=== PATIENT | male | born 1945 | race Caucasian/White ===

== ENCOUNTER 2018-06-09 14:24 | Emergency (ER) | payer OTHER ==
--- OUTSIDE RECORDS SUMMARY | 2018-06-09 14:34 | XMS REPORT | Continuity of Care Document ---
:1945 Author Organization Interface Problems Problem Status Onset Classification Date Comments Source Date Reported PREVENTIVE Active 10/06/20 Condition 12/28/2014 Medical HEALTH CARE 13 Group ATRIAL Active Condition 12/28/2014 Medical FIBRILLATION Group ESSENTIAL Active Condition 12/28/2014 Medical HYPERTENSION, Group BENIGN OSTEOPENIA Active Condition 12/28/2014 Medical Group COPD Active Condition 12/28/2014 Medical Group ASTHMA, Active Condition 12/28/2014 Medical UNSPECIFIED, Group UNSPECIFIED STATUS BENIGN Active Condition 12/28/2014 Medical PROSTATIC Group HYPERTROPHY, WITH URINARY OBSTRUCTION ARTHRITIS, Active Condition 12/28/2014 Medical KNEES, Group BILATERAL PERIPHERAL Active Condition 12/28/2014 Medical NEUROPATHY Group Arthritis Resolved Problem 05/22/2018 Medical Group Arthritis of Active Problem 05/22/2018 Data migrated Medical knee<sup>1</sup from [employer] [facility] > Centricity on 04/30/15. Asthma<sup>2</s Active Problem 05/22/2018 Data migrated Medical up> from [employer] [facility] Centricity on 04/30/15. Atrial Active Problem 05/22/2018 Data migrated Medical fibrillation<dsouza from [employer] Group p>3</sup> Centricity on 04/30/15. Back strain Resolved Problem 05/22/2018 Medical Group Benign Active Problem 05/22/2018 Data migrated Medical essential from GE Group hypertension<dsouza Centricity on p>4</sup> 04/30/15. Benign Active Problem 05/22/2018 Data migrated Medical prostatic from [employer] Group hypertrophy Centricity on with outflow 04/30/15. obstruction<sup >5</sup> Broken Resolved Problem 05/22/2018 Left Medical forearm<sup>6</ Group sup> Bronchitis Resolved Problem 05/22/2018 Medical Group Chronic Active Problem 05/22/2018 Data migrated Medical obstructive from GE Group lung Centricity on disease<sup>7</ 04/30/15. sup> External Resolved Problem 05/22/2018 Medical hemorrhoid Group Fatigue Resolved Problem 05/22/2018 Medical Group Osteopenia<sup> Active Problem 05/22/2018 Data migrated Medical 8</sup> from [employer] Group Centricity on 04/30/15. Peripheral Resolved Problem 05/22/2018 Medical autonomic Group neuropathy of unknown cause Peripheral Active Problem 05/22/2018 Data migrated Medical nerve from [employer] Group disease<sup>9</ Centricity on sup> 04/30/15. Viral pneumonia Resolved Problem 05/22/2018 Medical Group Medications Medication Details Route Status Patient Ordering Order Source Instructions Provider Date naproxen 500 mg 500 mg=1 tab, Active MH oral tablet PO, PRN, PRN 018 Medical Pain Score Group 6-10, # 30 caplet, 6 Refill(s), Pharmacy: [facility] Amlodipine 10 MG See Active MH / Benazepril Instructions, 018 Medical hydrochloride 40 TAKE 1 CAPSULE Group MG Oral Capsule DAILY, # 90 tab, 3 Refill(s), Pharmacy: [facility] naproxen 500 mg 500 mg=1 tab, No MH oral tablet PO, PRN, PRN Longer 018 Medical Pain Score Active Group 6-10, # 30 caplet, 6 Refill(s), Pharmacy: [facility] NAPROXEN SODIUM PRN No MH 550 MG TABS Longer Medical Active Group LOTREL 5-20 MG 1 tablet twice Active MH CAPS day 013 Medical Group NAPROXEN 500 MG 1 tablet daily Active MH TABS Medical Group MULTAQ 400 MG 1 tablet twice Active MH TABS day Medical Group PRADAXA 150 MG 1 tablet daily Active MH CAPS 013 Medical Group CENTRUM SILVER Active MH ULTRA MENS TABS Medical Group SUPER B-COMPLEX Active MH CAPS Medical Group DEXILANT 30 MG Active MH CPDR Medical Group NAPROXEN SODIUM PRN No MH 550 MG TABS Longer Medical Active Group NAPROXEN 500 MG 1 tablet daily Active MH TABS Medical Group MULTAQ 400 MG 1 tablet twice Active MH TABS day 013 Medical Group PRADAXA 150 MG 1 tablet daily Active CAPS 013 Medical Group Allergies, Adverse Reactions, Alerts Substance Category Reaction Severity Reaction Status Date Comments Source type Reported NKDA<sup>1< Assertion Drug Active Data MH /sup> allergy 5 migrated Medical from [facility] on 01/24/16. Originally documented as NKA. Immunizations Immunization Date Given Site Status Last Updated Comments Source Results Order Name Results Value Reference Date Interpretation Comments Source Range Chemistry CHOLESTEROL 159 - 199 mg/dl 2014 Medical Group Chemistry TRIGLYCERIDE 48 - 149 mg/dl 2014 Medical Group Chemistry HDL 63 >=61 mg/dl 2014 Medical Group Chemistry LDL 86 - 99 mg/dl 2014 Medical Group Chemistry SODIUM 140 135 - 145 MEQ/L 2014 Medical mmol/L Group Chemistry POTASSIUM 4.6 3.5 - 5.1 MEQ/L 2014 Medical mmol/L Group Chemistry CREATININE 1.2 0.5 - 1.4 mg/dL 2014 Medical Group Chemistry BUN 22 7 - 22 mg/dL 2014 Medical Group Chemistry BUN/CREAT 18 6 - 25 2014 Medical Group Chemistry ALBUMIN 4.2 3.5 - 5.0 g/dL 2014 Medical Group Chemistry CALCIUM 9.0 8.5 - 10.5 mg/dL 2014 Medical Group Chemistry SGPT (ALT) 25 U/L 0 - 65 2014 Medical Group Chemistry SGOT (AST) 23 U/L 0 - 37 2014 Medical Group Chemistry ALK PHOS 78 U/L 39 - 136 2014 Medical Group Chemistry TSH 1.960 0.360 - uIU/mL 3.740 2014 Medical Group Chemistry PSA 2.46 0.00 - 4.00 ng/mL 2014 Medical Group Hematology HGB 16.0 14.0 - 18.0 g/dL 2014 Medical Group Hematology HCT 46.0 % 42.0 - 54.0 2014 Medical Group Hematology PLATELETS 193 133 - 450 K/CMM 2014 Medical /mm3 Group Chemistry CHOLESTEROL 190 - 199 mg/dl 2012 Medical Group Chemistry TRIGLYCERIDE 45 - 149 11/ mg/dl 2012 Medical Group Chemistry HDL 69 >=61 11 mg/dl 2012 Medical Group Chemistry CHOLESTEROL 190 - 199 11 mg/dl 2012 Medical Group Chemistry TRIGLYCERIDE 45 - 149 11 mg/dl 2012 Medical Group Chemistry HDL 69 >=61 11/ mg/dl 2012 Medical Group Chemistry SODIUM 142 135 - 145 MEQ/L 2012 Medical mmol/L Group Chemistry POTASSIUM 4.2 3.5 - 5.1 MEQ/L 2012 Medical mmol/L Group Chemistry CREATININE 1.0 0.5 - 1.4 mg/dL 2012 Medical Group Chemistry BUN 18 7 - 22 mg/dL 2012 Medical Group Chemistry BUN/CREAT 18 6 - 25 2012 Medical Group Chemistry ALBUMIN 4.3 3.5 - 5.0 g/dL 2012 Medical Group Chemistry CALCIUM 9.3 8.5 - 10.5 mg/dL 2012 Medical Group Chemistry SGPT (ALT) 27 U/L 0 - 65 2012 Medical Group Chemistry SGOT (AST) 19 U/L 0 - 37 2012 Medical Group Chemistry PSA 2.54 0.00 - 4.00 ng/mL 2012 Medical Group Chemistry TRIGLYCERIDE 45 - 149 mg/dl 2012 Medical Group Chemistry HDL 69 >=61 mg/dl 2012 Medical Group Chemistry CHOLESTEROL 190 - 199 11 mg/dl 2012 Medical Group Chemistry TRIGLYCERIDE 45 - 149 11 mg/dl 2012 Medical Group Chemistry HDL 69 >=61 11/ mg/dl 2012 Medical Group Chemistry LDL 112 - 99 mg/dl 2012 Medical Group Chemistry SODIUM 142 135 - 145 MEQ/L 2012 Medical mmol/L Group Chemistry POTASSIUM 4.2 3.5 - 5.1 MEQ/L 2012 Medical mmol/L Group Chemistry CREATININE 1.0 0.5 - 1.4 11 mg/dL 2012 Medical Group Chemistry BUN 18 7 - 22 mg/dL 2012 Medical Group Chemistry BUN/CREAT 18 6 - 25 2012 Medical Group Chemistry ALBUMIN 4.3 3.5 - 5.0 g/dL 2012 Medical Group Chemistry CALCIUM 9.3 8.5 - 10.5 mg/dL 2012 Medical Group Chemistry SGPT (ALT) 27 U/L 0 - 65 2012 Medical Group Chemistry SGOT (AST) 19 U/L 0 - 37 2012 Medical Group Chemistry ALK PHOS 80 U/L 39 - 136 2012 Medical Group Chemistry TSH 1.570 0.360 - uIU/mL 3.740 2012 Medical Group Chemistry ALK PHOS 80 U/L 39 - 136 2012 Medical Group Chemistry TSH 1.570 0.360 - uIU/mL 3.740 2012 Medical Group Chemistry PSA 2.54 0.00 - 4.00 ng/mL 2012 Medical Group Hematology HGB 15.4 14.0 - 18.0 g/dL 2012 Medical Group Hematology HCT 45.7 % 42.0 - 54.0 2012 Medical Group Hematology PLATELETS 177 133 - 450 K/CMM 2012 Medical /mm3 Group Hematology HGB 15.4 14.0 - 18.0 g/dL 2012 Medical Group Hematology HCT 45.7 % 42.0 - 54.0 2012 Medical Group Hematology PLATELETS 177 133 - 450 K/CMM 2012 Medical /mm3 Group Chemistry PSA 3.3 08/26/ MH ng/mL 2011 Medical Group Chemistry PSA 3.3 08/26/ MH ng/mL 2011 Medical Group Chemistry PSA 3.3 08/26/ MH ng/mL 2011 Medical Group Chemistry PSA 3.3 08/26/ MH ng/mL 2011 Medical Group Vital Signs Vital Sign Value Date Comments Source Temperature Oral (F) 98.5 F 02/13/2018 Medical Group Heart Rate 85 02/13/2018 Medical Group BMI Calculated 26.08 02/13/2018 Medical Group Height 190.5 cm 02/13/2018 Medical Group Weight 94.636 02/13/2018 Medical Group Systolic (mm Hg) 141 02/13/2018 Medical Group Diastolic (mm Hg) 80 02/13/2018 Medical Group Weight 204 12/28/2014 Medical Group Temperature Oral (F) 98.1 F 12/28/2014 Medical Group Heart Rate 74 12/28/2014 Medical Group Systolic (mm Hg) 146 12/28/2014 Medical Group Diastolic (mm Hg) 78 12/28/2014 Medical Group Height 73 12/28/2014 Medical Group Weight 200 10/06/2013 Medical Group Temperature Oral (F) 97.0 F 10/06/2013 Medical Group Heart Rate 68 10/06/2013 Medical Group Systolic (mm Hg) 150 10/06/2013 Medical Group Diastolic (mm Hg) 80 10/06/2013 Medical Group Height 73 10/06/2013 Medical Group Encounters Location Location Encounter Encounter Reason Attending ADM DC Status Source Details Type Number For Provider Date Date Visit [facility] Lab Report [id number] Emilie 10/06 10/06 [place] [address] [facility], Medical Medical MD Group Group [facility] Office [id number] Emilie 12/28 12/28 [facility] Visit [address] [facility], Medical Medical MD Group Group [facility] Lab Report [id number] Emilie 12/28 12/28 [facility] [address], Medical Medical MD Group Group [facility] Phone [phone] 12/16 12/18 Primary [facility] Outpatient [id number] EMILIE 02/13 [facility] Outpatient [id number] Emilie 02/13 02/14 [facility] Outpatient [id number] VIVIAN 03/31 Active [facility] Ambulatory [id number] Vivian 03/31 03/31 Primary Pre-Reg [facility] Procedures Procedure Code Date [place]fomer [place] [id number] 02/13/2018 Medical venous blood by Group venipuncture bone density 4002.65 08/21/2010 Complete std Medical dev Group bone density 4002.65 08/11/2010 Done Medical Group bone density 4002.65 08/11/2010 [facility] Procedure on eye [id number] Medical Group Procedure on wrist [id number] Medical Group Sebaceous cyst [id number] Cyst removed Medical removal<sup>1</sup> from [facility] Group
--- OUTSIDE RECORDS SUMMARY | 2018-06-09 14:34 | XMS REPORT | Continuity of Care Document ---
:1945 Author Organization [facility] Care Team Providers Name Role Phone MD Carmelina, Shade Unavailable Unavailable Insurance Providers Payer name Policy type / Policy ID Covered constitution party ID Policy Edge Coverage type MEDICARE [place]: [employer] - FIDEL [employer] - CHOICE (POS II) Encounters Encounter Performer Location Date Lab Report Shade Cosme MD [facility] Oct 06, 2013 Problems Problem Effective Dates Problem Status ATRIAL FIBRILLATION Active ESSENTIAL HYPERTENSION, BENIGN Active OSTEOPENIA Active COPD Active ASTHMA, UNSPECIFIED, UNSPECIFIED STATUS Active BENIGN PROSTATIC HYPERTROPHY, WITH URINARY OBSTRUCTION Active ARTHRITIS, KNEES, BILATERAL Active PERIPHERAL NEUROPATHY Active PREVENTIVE HEALTH CARE Oct 06, 2013 Active Procedures Date Description Comments Aug 11, 2010 bone density Done Aug 11, 2010 bone density Done Oct 06, 2013 smoking status current every day smoker Aug 21, 2010 bone density Complete std dev Medications Medication Instructions Start Date Status NAPROXEN SODIUM 550 MG TABS PRN Inactive LOTREL 5-20 MG CAPS 1 tablet twice day Oct 06, 2013 Active NAPROXEN 500 MG TABS 1 tablet daily Oct 06, 2013 Active MULTAQ 400 MG TABS 1 tablet twice day Oct 06, 2013 Active PRADAXA 150 MG CAPS 1 tablet daily Oct 06, 2013 Active CENTRUM SILVER ULTRA MENS TABS Oct 06, 2013 Active SUPER B-COMPLEX CAPS Oct 06, 2013 Active DEXILANT 30 MG CPDR Oct 06, 2013 Active Vital Signs Date Description Test Result Oct 06, 2013 weight E&M - 3141-9 WEIGHT 200 lb Oct 06, 2013 temperature E&M TEMPERATURE 97.0 deg f Oct 06, 2013 pulse rate E&M - 8867-4 PULSE RATE 68 /min Oct 06, 2013 blood pressure, systolic - 8480-6 BP SYSTOLIC 150 mm Hg Oct 06, 2013 blood pressure, diastolic - 8462-4 BP DIASTOLIC 80 mm Hg Oct 06, 2013 height E&M - 8302-2 HEIGHT 73 in Results Date Description Test Name Value Reference Interpretation Status Oct 06, hemoglobin, blood HGB 15.4 g/dL 14.0-18.0 2012Oct 06, hematocrit, blood HCT 45.7 % 42.0-54.0 2012Oct 06, platelet count PLATELETS 177 K/CMM [phone] /mm3 Oct 06, hemoglobin, blood HGB 15.4 g/dL 14.0-18.0 2012Oct 06, hematocrit, blood HCT 45.7 % 42.0-54.0 2012Oct 06, platelet count PLATELETS 177 K/CMM [phone] /mm3 Oct 06, cholesterol, serum CHOLESTEROL 190 mg/dl <=199 2012Oct 06, triglyceride, serum, TRIGLYCERIDE 45 mg/dl <=149 2012 fasting Oct 06, HDL cholesterol, HDL 69 mg/dl >=61 2012Oct 06, sodium, serum SODIUM 142 MEQ/L [phone] mmol/L Oct 06, potassium, serum POTASSIUM 4.2 MEQ/L 3.5-5.1 2012 mmol/L Oct 06, creatinine, serum CREATININE 1.0 mg/dL 0.5-1.4 2012Oct 06, urea nitrogen, blood BUN 18 mg/dL 7-22 2012Oct 06, urea BUN/CREAT 18 null 6-25 2012 nitrogen/creatinine ratio, serum Oct 06, albumin, serum ALBUMIN 4.3 g/dL 3.5-5.0 2012Oct 06, calcium, serum CALCIUM 9.3 mg/dL 8.5-10.5 2012Oct 06, alanine SGPT (ALT) 27 U/L 0-65 2012 aminotransferase (SGPT), serum Oct 06, aspartate SGOT (AST) 19 U/L 0-37 2012 aminotransferase (SGOT), serum Oct 06, alkaline ALK PHOS 80 U/L 39-136 2012 phosphatase, serum Oct 06, thyroid stimulating TSH 1.570 0.360-3.740 2012 hormone, serum uIU/mL Oct 06, prostate specific PSA 2.54 0.00-4.00 2012 antigen ng/mL Sep 25, prostate specific PSA 3.3 ng/mL 2011 antigen Sep 25, prostate specific PSA 3.3 ng/mL 2011 antigen Oct 06, cholesterol, serum CHOLESTEROL 190 mg/dl <=199 2012Oct 06, triglyceride, serum, TRIGLYCERIDE 45 mg/dl <=149 2012 fasting Oct 06, HDL cholesterol, HDL 69 mg/dl >=61 2012 serum Oct 06, LDL cholesterol, LDL 112 mg/dl <=99 High 2012Oct 06, sodium, serum SODIUM 142 MEQ/L [phone] mmol/L Oct 06, potassium, serum POTASSIUM 4.2 MEQ/L 3.5-5.1 2012 mmol/L Oct 06, creatinine, serum CREATININE 1.0 mg/dL 0.5-1.4 2012Oct 06, urea nitrogen, blood BUN 18 mg/dL 7-22 2012Oct 06, urea BUN/CREAT 18 null 6-25 2012 nitrogen/creatinine ratio, serum Oct 06, albumin, serum ALBUMIN 4.3 g/dL 3.5-5.0 2012Oct 06, calcium, serum CALCIUM 9.3 mg/dL 8.5-10.5 2012Oct 06, alanine SGPT (ALT) 27 U/L 0-65 2012 aminotransferase (SGPT), serum Oct 06, aspartate SGOT (AST) 19 U/L 0-37 2012 aminotransferase (SGOT), serum Oct 06, alkaline ALK PHOS 80 U/L 39-136 2012 phosphatase, serum Oct 06, thyroid stimulating TSH 1.570 0.360-3.740 2012 hormone, serum uIU/mL Oct 06, prostate specific PSA 2.54 0.00-4.00 2012 antigen ng/mL
--- OUTSIDE RECORDS SUMMARY | 2018-06-09 14:35 | XMS REPORT | Summary of Care ---
:1945 Author Organization [facility] Primary Care [facility] Address [address] [place] [address]- Encounter HQ Bipinntr_dominique(FIN) [phone] Date(s): 12/16/17 - 12/17/17 [facility] Care [facility] [address] [place], [place] [address] [phone] Vital Signs No data available for this section Problem List Condition Effective Dates Status Health Status Informant Arthritis(Confirmed) Resolved Arthritis of knee1 Active Asthma2 Active Atrial fibrillation3 Active Back strain(Confirmed) Resolved Benign essential hypertension4 Active Benign prostatic hypertrophy with Active outflow obstruction5 Broken forearm(Confirmed)6 Resolved Bronchitis(Confirmed) Resolved Chronic obstructive lung disease7 Active External hemorrhoid(Confirmed) Resolved Fatigue(Confirmed) Resolved Osteopenia8 Active Peripheral autonomic neuropathy of Resolved unknown cause(Confirmed) Peripheral nerve disease9 Active Viral pneumonia(Confirmed) Resolved 1Data migrated from [employer] on 04/30/15.2Data migrated from [employer] on 04/30/15.3Data migrated from [employer] on 04/30/15.4Data migrated from [employer] on 04/30/15.5Data migrated from [employer] on 04/30/[id number] migrated from [employer] on 04/30/15.8Data migrated from [employer] on 04/30.9Data migrated from [employer] on 04/30/15. Allergies, Adverse Reactions, Alerts Substance Reaction Severity Status NKDA1 Active 1Data migrated from [employer] on 01/24/16. Originally documented as NKA. Medications naproxen 500 mg oral tablet 500 mg=1 tab, PO, PRN, PRN Pain Score 6-10, # 30 caplet, 6 Refill(s), Pharmacy: [facility] Start Date: 12/16/17 Stop Date: 02/13/18 Status: Discontinued Results No data available for this section Immunizations No data available for this section Procedures Procedure Date Related Diagnosis Body Site Status Procedure on eye Completed Procedure on wrist Completed Sebaceous cyst removal1 Completed 1Cyst removed from back Social History Social History Type Response Substance Abuse Use: None. Employment/School Status: Retired.1 Alcohol Current, Type Wine. Frequency: 1-2 times per week. Smoking Status Former smoker; Exposure to Tobacco Smoke None; Cigarette Smoking Last 365 Days No; Reg Smoking Cessation Counseling No entered on: 02/13/18 1Surrogate decision maker- - Jo Osmani [phone] Assessment and Plan No data available for this section
--- OUTSIDE RECORDS SUMMARY | 2018-06-09 14:35 | XMS REPORT | Summary of Care ---
:1945 Author Organization [facility] Primary Care [facility] Address [address] [place] [address]- Encounter HQ Bipinntr_dominique(FIN) [id number] Date(s): 03/31/18 - 03/31/18 [facility] Care [facility] [address] [place], [place] [address] [[email or web address]] [phone] Attending Physician: Vivian Todd MD Vital Signs No data available for this [...] on 04/30/15.5Data migrated from [employer] on 04/30/[id number] migrated from [employer] on 04/30/15.8Data migrated from [employer] on 04/30.9Data migrated from [employer] on 04/30/15. Allergies, Adverse Reactions, Alerts Substance Reaction Severity Status NKDA1 Active 1Data migrated from [employer] on 01/24/16. Originally documented as NKA. Medications No data available for this section Results No data available for this section [...] 02/13/18 1Surrogate decision maker- - Jo Osmani [phone] Assessment and Plan No data available for this section
--- OUTSIDE RECORDS SUMMARY | 2018-06-09 14:35 | XMS REPORT | Continuity of Care Document ---
:1945 Author Organization [facility] Care Team Providers Name Role Phone MD Carmelina, Shade Unavailable Unavailable Insurance Providers Payer name Policy type / Policy ID Covered green party ID Policy Edge Coverage type MEDIC[place]: [employer] AETNA - F[employer]EL CHEM[employer] - CHOICE (POS II) AETNA - FIDEL CHEMICAL - CHOICE (POS II) MEDIC[place] [employer] AETNA - FIDEL CHEMICAL (MEDICARE REPLACEMENT P AETNA - FIDEL CHEMICAL - CHOICE (POS II) MEDICARE [place]: [employer] AETNA - FIDEL CHEMICAL - CHOICE (POS II) MEDICARE B-[place]: [employer] Encounters Encounter Performer Location Date Lab Report Shade Cosme MD [facility] Dec 28, 2014 Problems Problem Effective Dates Problem Status ATRIAL [...] 21, 2010 bone density Complete std dev Dec 28, 2014 smoking status Former smoker Medications Medication Instructions Start Date Status NAPROXEN [...] height E&M - 8302-2 HEIGHT 73 in Dec 28, 2014 weight E&M - 3141-9 WEIGHT 204 lb Dec 28, 2014 temperature E&M TEMPERATURE 98.1 deg f Dec 28, 2014 pulse rate E&M - 8867-4 PULSE RATE 74 /min Dec 28, 2014 blood pressure, systolic - 8480-6 BP SYSTOLIC 146 mm Hg Dec 28, 2014 blood pressure, diastolic - 8462-4 BP DIASTOLIC 78 mm Hg Dec 28, 2014 height E&M - 8302-2 HEIGHT 73 in Results Date Description Test Name Value Reference Interpretation Status Oct 06, hemoglobin, blood HGB 15.4 g/dL 14.0-18.0 2012Oct 06, hematocrit, blood HCT 45.7 % 42.0-54.0 2012Oct 06, platelet count PLATELETS 177 K/CMM [phone] /mm3 Oct 06, hemoglobin, blood HGB 15.4 g/dL 14.0-18.0 2012Oct 06, hematocrit, blood HCT 45.7 % 42.0-54.0 2012Oct 06, platelet count PLATELETS 177 K/CMM [phone] /mm3 Dec 28, hemoglobin, blood HGB 16.0 g/dL 14.0-18.0 2014Dec 28, hematocrit, blood HCT 46.0 % 42.0-54.0 2014Dec 28, platelet count PLATELETS 193 K/CMM [phone] /mm3 Oct 06, cholesterol, serum CHOLESTEROL 190 mg/dl <=199 2012Oct 06, triglyceride, serum, TRIGLYCERIDE 45 mg/dl <=149 2012 fasting Oct 06, HDL cholesterol, HDL 69 mg/dl >=61 2012 serum Oct 06, sodium, serum SODIUM 142 MEQ/L [phone] mmol/L Oct 06, potassium, serum POTASSIUM 4.2 [...] specific PSA 2.54 0.00-4.00 2012 antigen ng/mL Aug 26, prostate specific PSA 3.3 ng/mL 2011 antigen Aug 26, prostate specific PSA 3.3 ng/mL 2011 antigen Oct 06, cholesterol, serum CHOLESTEROL 190 mg/dl <=199 2012Oct 06, triglyceride, serum, TRIGLYCERIDE 45 mg/dl <=149 2012 fasting Oct 06, HDL cholesterol, HDL 69 mg/dl >=61 2012 serum Oct 06, LDL cholesterol, LDL 112 mg/dl <=99 High 2012Oct 06, sodium, serum SODIUM 142 MEQ/L 142-595 5702 mmol/L Oct 06, potassium, serum POTASSIUM 4.2 [...] PHOS 80 U/L 39-136 2012 phosphatase, serum Nov , thyroid stimulating TSH 1.570 0.360-3.740 2012 hormone, serum uIU/mL Oct 06, prostate specific PSA 2.54 0.00-4.00 2012 antigen ng/mL Dec 28, cholesterol, serum CHOLESTEROL 159 mg/dl <=199 2014Dec 28, triglyceride, serum, TRIGLYCERIDE 48 mg/dl <=149 2014 fasting Dec 28, HDL cholesterol, HDL 63 mg/dl >=61 2014 serum Dec 28, LDL cholesterol, LDL 86 mg/dl <=99 2015 serum Dec 28, sodium, serum SODIUM 140 MEQ/L [phone] mmol/L Dec 28, potassium, serum POTASSIUM 4.6 MEQ/L 3.5-5.1 2014 mmol/L Dec 28, creatinine, serum CREATININE 1.2 mg/dL 0.5-1.4 2014Dec 28, urea nitrogen, blood BUN 22 mg/dL 7-22 2014Dec 28, urea BUN/CREAT 18 null 6-25 2014 nitrogen/creatinine ratio, serum Dec 28, albumin, serum ALBUMIN 4.2 g/dL 3.5-5.0 2014Dec 28, calcium, serum CALCIUM 9.0 mg/dL 8.5-10.5 2014Dec 28, alanine SGPT (ALT) 25 U/L 0-65 2014 aminotransferase (SGPT), serum Dec 28, aspartate SGOT (AST) 23 U/L 0-37 2014 aminotransferase (SGOT), serum Dec 28, alkaline ALK PHOS 78 U/L 39-136 2014 phosphatase, serum Dec 28, thyroid stimulating TSH 1.960 0.360-3.740 2014 hormone, serum uIU/mL Dec 28, prostate specific PSA 2.46 0.00-4.00 2015 antigen ng/mL
--- OUTSIDE RECORDS SUMMARY | 2018-06-09 14:35 | XMS REPORT | Summary of Care ---
:1945 Author Organization [facility] Primary Care [facility] Address [address] [place] [address]- Encounter HQ Bipinntr_dominique(FIN) [phone] Date(s): 03/31/18 - 03/31/18 [facility] Care [facility] [address] [place], [place] [address] [phone] Attending Physician: Vivian Todd MD Vital Signs [...] on 04/30/15.5Data migrated from [employer] on 04/30/[id number] migrated from [employer] on 04/30/15.8Data migrated [...] 02/13/18 1Surrogate decision maker- - Jo Osmani [phone] Assessment and Plan No data available for this section
--- OUTSIDE RECORDS SUMMARY | 2018-06-09 14:35 | XMS REPORT | Summary of Care ---
:1945 Author Organization [facility] Address [address] [place] [address]- Encounter HQ Nisha_dominique(FIN) [phone] Date(s): 02/13/18 - 02/13/18 [facility] [address] [place], [place] [address] [phone] Discharge Disposition: Home or Self Care Attending Physician: Shade Cosme MD Vital Signs Most recent to oldest [Reference Range]: 1 Height 190.5 cm (02/13/18 1:48 PM) Temperature Oral [96.4-99.1 DegF] 98.5 DegF (02/13/18 1:48 PM) Blood Pressure [90-140/60-90 mmHg] 141/80 mmHg *HI* (02/13/18 1:48 PM) Peripheral Pulse Rate [60-100 bpm] 85 bpm (02/13/18 1:48 PM) Weight 94.636 kg (02/13/18 1:48 PM) Body Mass Index 26.08 m2 (02/13/18 1:48 PM) Problem List Condition Effective Dates Status Health [...] on 04/30/15.5Data migrated from [employer] on 04/30/15.6Efxa3Gurh migrated from [employer] on 04/30/15.8Data migrated from [employer] on 04/30.9Data migrated from [employer] on 04/30/15. Allergies, Adverse Reactions, Alerts Substance Reaction Severity Status NKDA1 Active 1Data migrated from [employer] on 01/24/16. Originally documented as NKA. Medications amLODIPine-benazepril 10 mg-40 mg oral capsule See Instructions, TAKE 1 CAPSULE DAILY, # 90 tab, 3 Refill(s), Pharmacy: [facility] Start Date: 02/13/18 Status: Orderednaproxen 500 mg oral tablet 500 mg=1 tab, PO, PRN, PRN Pain Score 6-10, # 30 caplet, 6 Refill(s), Pharmacy: [facility] Start Date: 02/13/18 Status: Ordered Results No data available for this section Immunizations No data available for this section Procedures Procedure Date Related Diagnosis Body Site Status Collection of venous blood by 02/13/18 Completed venipuncture Procedure on eye Completed Procedure on wrist [...] 02/13/18 1Surrogate decision maker- - Jo Osmani [phone] Assessment and Plan No data available for this section
--- OUTSIDE RECORDS SUMMARY | 2018-06-09 14:35 | XMS REPORT | Continuity of Care Document ---
:1945 Author Organization [facility] Care Team Providers Name Role Phone MD Carmelina, Shade Unavailable Unavailable Insurance Providers Payer name Policy type / Policy ID Covered libertarian ID Policy Edge Coverage type MEDICARE B-[place]: [...] [employer] Encounters Encounter Performer Location Date Office Visit Shade Cosme MD [facility] Dec 28, 2014 Problems Problem Effective Dates [...] 2012Oct 06, platelet count PLATELETS 177 K/CMM [phone] /mm3 Oct 06, hemoglobin, blood HGB 15.4 g/dL 14.0-18.0 2012Oct 06, hematocrit, blood HCT 45.7 % 42.0-54.0 2012Oct 06, platelet count PLATELETS 177 K/CMM [phone] /mm3 Oct 06, cholesterol, serum CHOLESTEROL 190 mg/dl <=199 2012Oct 06, triglyceride, serum, TRIGLYCERIDE 45 mg/dl <=149 2012 fasting Oct 06, HDL cholesterol, HDL 69 mg/dl >=61 2012 serum Oct 06, sodium, serum SODIUM 142 MEQ/L 187-125 2095 mmol/L Oct 06, potassium, serum POTASSIUM 4.2 [...] LDL cholesterol, LDL 112 mg/dl <=99 High 2012 serum Oct 06, sodium, serum SODIUM 142 MEQ/L 495-359 1793 mmol/L Oct 06, potassium, serum POTASSIUM 4.2 [...] 1.570 0.360-3.740 2012 hormone, serum uIU/mL Oct 05, prostate specific PSA 2.54 0.00-4.00 2012 antigen ng/mL
[2018-06-09 17:29] LABS: Absolute Lymphocytes (CBC) 1.4 K/uL (0.7-4.9); Absolute Monocytes 0.6 K/uL (0.1-1.3); Absolute Neutrophil 4.8 K/uL (1.8-8.0); Basophils % 1.4 % (0-1.3); Eosinophils % 2.6 % (0-4.4); Hematocrit 45.3 % (39.6-49.0); Lymphocytes % 19.4 % (15.3-44.8); MCH 32.9 pg (27.0-35.0); MCV 96.7 fL (80-100); MPV 9.2 fL (7.6-11.3); Monocytes % 8.6 % (3.3-12.3); RBC Red Blood Cell Count 4.68 M/uL (4.33-5.43)
[2018-06-09 17:40] LABS: Protime INR 1.26
[2018-06-09 17:47] LABS: Potassium 4.2 mmol/L (3.5-5.1)
--- NOTE | 2018-06-09 18:07 | RAD REPORT ---
EXAM DESCRIPTION: RAD - Chest Pa And Lat (2 Views) - 06/09/2018 5:55 pm CLINICAL HISTORY: COUGH Chest pain. COMPARISON: CHEST PA AND LAT 2 VIEW dated 11/13/2013; CHEST PA AND LAT 2 VIEW dated 10/19/2011; CHES T PA AND LAT 2 VIEW dated 03/14/2001; Abdomen Pelvis W Contrast dated 05/22/2018 FINDINGS: The lungs are emphysematous with blunting of the right costophrenic angle which may indica te a small amount of pleural fluid or pleural thickening. No focal infiltrate typical of pneumonia id entified. The heart is mildly enlarged in size. No displaced fractures. IMPRESSION: Prominent COPD. Mild pleural thickening or pleural effusion on the right suspected.
[2018-06-09 18:38] LABS: Urine Blood NEGATIVE (NEG); Urine Glucose NEGATIVE (NEG); Urine Protein NEGATIVE (NEG)
--- NOTE | 2018-06-09 18:46 | RAD REPORT ---
EXAM DESCRIPTION: CT - Chest For Pe Angio - 06/09/2018 6:39 pm CLINICAL HISTORY: Chest pain. COUGH COMPARISON: Chest Pa And Lat (2 Views) dated 06/09/2018 TECHNIQUE: CT angiogram of the pulmonary arteries was performed with MIP. All CT scans are performed using dose optimization technique as appropriate and may include automated exposure control or mA/KV adjustment according to patient size. FINDINGS: No evidence of pulmonary thromboembolism. No acute aortic finding demonstrated. The heart is mildly enlarged in size. Emphysematous changes are present with a vague ill-defined infiltrate seen in the posterior right upp er lobe, suspicious for mild developing pneumonia. Small right pleural effusion is noted. No concerning bony finding. IMPRESSION: No evidence of pulmonary thromboembolism. COPD with mild developing infiltrate suspected in the posterior right upper lobe. Small right pleural effusion.
--- NOTE | 2018-06-09 19:09 | ER ---
Nurse's Notes [facility] Name: Casey Keen Age: 72 yrs Sex: Male : 1945 Arrival Date: 06/09/2018 Time: 14:27 Bed 24 Private MD: Monty Bryant H Diagnosis: Other pneumonia, unspecified organism Presentation: 06/09 14:44 Presenting complaint: Patient states: coughing up blood x 2 days ago. Pt states aa5 "sometimes it's pinkish and sometimes is dark red blood". Pt states "I also have a pain under my right scapula". Transition of care: patient was not received from another setting of care. Onset of symptoms was June 2018. Risk Assessment: Do you want to hurt yourself or someone else? Patient reports no desire to harm self or others. Initial Sepsis Screen: Does the patient meet any 2 criteria? No. Patient's initial sepsis screen is negative. Does the patient have a suspected source of infection? No. Patient's initial sepsis screen is negative. Care prior to arrival: None. 14:44 Method Of Arrival: Ambulatory aa5 14:44 Acuity: MALU 3 aa5 Triage Assessment: 18:37 Respiratory: the patient has mild shortness of breath. kr2 Historical: - Allergies: 14:46 No Known Allergies; aa5 - PMHx: 14:46 Hypertension; aa5 - PSHx: 14:46 Polyps removed; Hernia repair; aa5 - Immunization history:: Adult Immunizations unknown. - Social history:: Smoking status: Patient/guardian denies using tobacco. - Ebola Screening: : No symptoms or risks identified at this time. Screenin:44 Tuberculosis screening: Possible symptoms: recent bloody sputum, Pt denies night aa5 sweats, denies weight loss. 17:10 Abuse screen: Denies threats or abuse. Denies injuries from another. Nutritional kr2 screening: No deficits noted. Fall Risk IV access (20 points). Assessment: 17:15 General: Appears in no apparent distress. comfortable, well groomed, well developed, kr2 well nourished, Behavior is calm, cooperative, appropriate for age. Pain: Complains of pain in near right scapula Pain does not radiate. Pain currently is 2 out of 10 on a pain scale. Quality of pain is described as sharp, Is continuous, Alleviated by rest, Aggravated by increased activity, coughing. Neuro: Level of Consciousness is awake, alert, obeys commands, Oriented to person, place, time, situation, Appropriate for age. Cardiovascular: Capillary refill < 3 seconds in bilateral fingers Patient's skin is warm and dry. Rhythm is sinus rhythm with PVC. Respiratory: Airway is patent Respiratory effort is even, unlabored, Respiratory pattern is regular, symmetrical, Onset: The symptoms/episode began/occurred 2-3 days ago. Respiratory: Reports cough that is productive, persistent since 2-3 days ago with streaks of blood in the mucous. GI: Abdomen is flat, non-distended. : Denies burning with urination. EENT: Nares are clear bilaterally Oral mucosa is moist. Derm: Skin is intact, is healthy with good turgor, Skin is pink, warm \\T\\ dry. Musculoskeletal: Circulation, motion, and sensation intact. 17:15 Respiratory: Breath sounds with crackles bilaterally. kr2 18:15 Reassessment: Patient appears in no apparent distress at this time. Patient and/or kr2 family updated on plan of care and expected duration. Pain level reassessed. Patient is alert, oriented x 3, equal unlabored respirations, skin warm/dry/pink. Patient denies pain at this time. 19:15 Reassessment: Patient appears in no apparent distress at this time. Patient and/or kr2 family updated on plan of care and expected duration. Pain level reassessed. Patient is alert, oriented x 3, equal unlabored respirations, skin warm/dry/pink. Patient denies pain at this time. Vital Signs: 14:46 BP 127 / 79; Pulse 84; Resp 18 S; Temp 98.3(TE); Pulse Ox 96% on R/A; Weight 93.44 kg aa5 (R); Height 6 ft. 3 in. (190.50 cm) (R); Pain 3/10; 18:15 BP 152 / 89; Pulse 90; Resp 18; Pulse Ox 98% on R/A; kr2 19:18 BP 149 / 78; Pulse 91; Resp 20; Pulse Ox 95% on R/A; kr2 14:46 Body Mass Index 25.75 (93.44 kg, 190.50 cm) aa5 ED Course: 14:27 Patient arrived in ED. sb2 14:28 Monty Bryant MD is Private Physician. sb2 14:44 Triage completed. aa5 14:45 Arm band placed on. aa5 16:50 Rakesh Funk MD is Attending Physician. 17:07 Shannon Dong, RN is Primary Nurse. kr2 17:15 Patient has correct armband on for positive identification. Bed in low position. Call kr2 light in reach. Side rails up X 1. satellite project site monitor on. Pulse ox on. NIBP on. Verbal reassurance given. Head of bed elevated. 17:15 Inserted saline lock: 20 gauge in left antecubital area, using aseptic technique. Blood kr2 collected. 17:26 EKG done, by technician's helper. reviewed by Rakesh Funk MD. 3 17:51 X-ray completed. Patient tolerated procedure well. Patient moved back from radiology. 17:53 XRAY Chest Pa And Lat (2 Views) In Process Unspecified. EDMS 18:[address] via wheelchair. nc 18:37 Urine collected: clean catch specimen, clear. kr2 18:38 CT completed. Patient tolerated procedure well. Patient moved back from CT. nc 18:39 CT Chest For PE Angio In Process Unspecified. EDMS 19:17 No provider procedures requiring assistance completed. IV discontinued, intact, kr2 bleeding controlled, No redness/swelling at site. Pressure dressing applied. Administered Medications: No medications were administered Outcome: 19:08 Discharge ordered by . 19:18 Discharged to home ambulatory. kr2 19:18 Condition: good 19:18 Discharge instructions given to patient, Instructed on discharge instructions, follow up and referral plans. medication usage, Demonstrated understanding of instructions, follow-up care, medications, Prescriptions given X 2. 19:20 Patient left the ED. kr2 Signatures: Dispatcher [employer] EDMS Zaria Lindquist Brittney Quinn, RN RN aa5 Alex Witt Gregory, MD MD Shannon Dong, RN RN kr2 Danielle Gustafson sb2 Nayana Jamison sm3 Corrections: (The following items were deleted from the chart) 14:47 14:44 Presenting complaint: Patient states: coughing up blood x 2 days ago. Pt states aa5 "sometimes it's pinkish and sometimes is dark red blood" aa5
--- NOTE | 2018-06-09 19:09 | EDPHYS ---
Physician Documentation [facility] Name: Casey Keen Age: 72 yrs Sex: Male : 1945 Arrival Date: 06/09/2018 Time: 14:27 Bed 24 Private MD: Monty Bryant H ED Physician FunkRakesh HPI: 06/09 18:49 This 72 yrs old Male presents to ER via Ambulatory with complaints of gs Productive Cough - blood, Right Side Pain. 18:49 The patient or guardian reports cough, described as moderate, with productive sputum, gs that is bloody, that is yellow. Onset: The symptoms/episode began/occurred 2 day(s) ago. Severity of symptoms: At their worst the symptoms were moderate, in the emergency department the symptoms are unchanged. Modifying factors: The symptoms are alleviated by nothing, the symptoms are aggravated by nothing. Associated signs and symptoms: Pertinent negatives: chest pain, fever. The patient has experienced similar episodes in the past, a few times. Historical: - Allergies: 14:46 No Known Allergies; aa5 - PMHx: 14:46 Hypertension; aa5 - PSHx: 14:46 Polyps removed; Hernia repair; aa5 - Immunization history:: Adult Immunizations unknown. - Social history:: Smoking status: Patient/guardian denies using tobacco. - Ebola Screening: : No symptoms or risks identified at this time. ROS: 18:49 All other systems are negative. gs Exam: 18:49 Head/Face: Normocephalic, atraumatic. Eyes: Pupils equal round and reactive to light, gs extra-ocular motions intact. Lids and lashes normal. Conjunctiva and sclera are non-icteric and not injected. Cornea within normal limits. Periorbital areas with no swelling, redness, or edema. ENT: Nares patent. No nasal discharge, no septal abnormalities noted. Tympanic membranes are normal and external auditory canals are clear. Oropharynx with no redness, swelling, or masses, exudates, or evidence of obstruction, uvula midline. Mucous membranes moist. Neck: Trachea midline, no thyromegaly or masses palpated, and no cervical lymphadenopathy. Supple, full range of motion without nuchal rigidity, or vertebral point tenderness. No Meningismus. Chest/axilla: Normal chest wall appearance and motion. Nontender with no deformity. No lesions are appreciated. Cardiovascular: Regular rate and rhythm with a normal S1 and S2. No gallops, murmurs, or rubs. Normal PMI, no JVD. No pulse deficits. Abdomen/GI: Soft, non-tender, with normal bowel sounds. No distension or tympany. No guarding or rebound. No evidence of tenderness throughout. Back: No spinal tenderness. No costovertebral tenderness. Full range of motion. Skin: Warm, dry with normal turgor. Normal color with no rashes, no lesions, and no evidence of cellulitis. MS/ Extremity: Pulses equal, no cyanosis. Neurovascular intact. Full, normal range of motion. Neuro: Awake and alert, GCS 15, oriented to person, place, time, and situation. Cranial nerves II-XII grossly intact. Motor strength 5/5 in all extremities. Sensory grossly intact. Cerebellar exam normal. Normal gait. 18:49 Constitutional: The patient appears alert, awake. 18:49 ECG was reviewed by the Attending Physician. 18:49 Respiratory: the patient does not display signs of respiratory distress, Respirations: normal, Breath sounds: rhonchi, that are mild, are scattered. Vital Signs: 14:46 BP 127 / 79; Pulse 84; Resp 18 S; Temp 98.3(TE); Pulse Ox 96% on R/A; Weight 93.44 kg aa5 (R); Height 6 ft. 3 in. (190.50 cm) (R); Pain 3/10; 18:15 BP 152 / 89; Pulse 90; Resp 18; Pulse Ox 98% on R/A; kr2 19:18 BP 149 / 78; Pulse 91; Resp 20; Pulse Ox 95% on R/A; kr2 14:46 Body Mass Index 25.75 (93.44 kg, 190.50 cm) aa5 MDM: 17:06 Patient medically screened. 18:49 Differential Diagnosis: Bronchitis Pneumonia Other cad, pe. Data reviewed: vital signs, nurses notes. Response to treatment: the patient's symptoms have mildly improved after treatment, and as a result, I will discharge patient. 06/09 17:09 Order name: Basic Metabolic Panel; Complete Time: 17:58 06/09 17:09 Order name: CBC with Diff; Complete Time: 17:58 06/09 17:09 Order name: PT-INR; Complete Time: 17:58 gs 06/09 17:09 Order name: Troponin (emerg Dept Use Only); Complete Time: 17:58 gs 06/09 17:09 Order name: D-Dimer; Complete Time: 17:58 gs 06/09 18:37 Order name: Urine Dipstick--Ancillary (enter results); Complete Time: 18:48 eb 06/09 17:09 Order name: EKG; Complete Time: 17:09 gs 06/09 17:09 Order name: Cardiac monitoring; Complete Time: 17:54 gs 07 17:09 Order name: EKG - Nurse/Tech; Complete Time: 17:55 gs 07 17:09 Order name: IV Saline Lock; Complete Time: 17:55 gs 06/09 17:09 Order name: Labs collected and sent; Complete Time: 17:55 gs 07 17:09 Order name: O2 Per Protocol; Complete Time: 17:55 gs 0709 17:09 Order name: XRAY Chest Pa And Lat (2 Views); Complete Time: 18:16 gs 06/09 18:17 Order name: CT Chest For PE Angio; Complete Time: 18:48 gs 06/09 17:09 Order name: O2 Sat Monitoring; Complete Time: 17:55 gs 06/09 17:09 Order name: Urine Dipstick-Ancillary (obtain specimen); Complete Time: 18:32 gs EC:49 Rate is 87 beats/min. Rhythm is irregularly irregular. QRS interval is normal. QT gs interval is normal. T waves are Normal. No ST changes noted. Clinical impression: Abnormal EKG without significant change and Atrial Fibrillation. Interpreted by me. Administered Medications: No medications were administered Disposition: 06/09/18 19:08 Discharged to Home. Impression: Other pneumonia, unspecified organism. - Condition is Stable. - Discharge Instructions: Pneumonia, Adult. - Prescriptions for Levaquin 750 mg Oral Tablet - take 1 tablet by ORAL route once daily for 5 days; 5 tablet. Albuterol Sulfate 90 mcg/actuation - inhale 1-2 puff by INHALATION route every 4-6 hours; 1 Inhaler. - Medication Reconciliation Form, Thank You Letter, Antibiotic Education, Prescription Opioid Use form. - Follow up: Private Physician; When: 2 - 3 days; Reason: Re-evaluation by your physician. Signatures: Dispatcher [employer] EDMS Brittney Quinn RN RN aa5 Rakesh Funk MD MD gs Shannon Dong RN RN kr2 Corrections: (The following items were deleted from the chart) 19:20 19:08 06/09/2018 19:08 Discharged to Home. Impression: Other pneumonia, unspecified kr2 organism. Condition is Stable. Forms are Medication Reconciliation Form, Thank You Letter, Antibiotic Education, Prescription Opioid Use. Follow up: Private Physician; When: 2 - 3 days; Reason: Re-evaluation by your physician. gs
--- NOTE | 2018-06-09 22:18 | EKG ---
Test Date: 2018-06-09 Test Time: 17:19:11 [employer]: ELIAZAR MEASUREMENT RESULTS: Intervals: Rate: 87 NE: QRSD: 90 QT: 398 QTc: 478 [place]: P: NE: QRS: -25 T: 4 INTERPRETIVE STATEMENTS: Atrial fibrillation with premature ventricular or aberrantly conducted complexes Abnormal ECG Compared to ECG 04/08/2013 10:16:20 Ventricular premature complex(es) now present Electronically Signed On 06-09-18 22:17:09 CDT by Jameel Kwong
== END 2018-06-09 19:20 | disposition home or self-care (01) ==
LOC: ER 14:24
DX: J18.8 Other pneumonia, unspecified organism (principal); I10 Essential (primary) hypertension
CPT/HCPCS: 36415; 71046; 71275; 80048; 81003; 84484; 85025; 85379; 85610; 93005; 99285; Q9967

== ENCOUNTER 2021-08-11 12:53 | Emergency (ER) | payer OTHER ==
--- OUTSIDE RECORDS SUMMARY | 2021-08-11 12:56 | XMS REPORT | Continuity of Care Document ---
:1945 Author Organization [facility] t Address [address] [place] [address] Care Team Providers Name Role Phone Perez Attending Clinician Fannie Cosme Attending Clinician Problems Condition Condition Condition Status Onset Resolution Last Treating Co mments Source Name Details Category Date Date Treatment Clinician Date PREVENTIVE Condition Active 2012-122014-12-28 [facility] 12-06 10:30:00 l CARE 00:00: [place] PREVENTIVE HEALTH CARE Active 10/06/2013 Condition [facility] Arthritis Problem Resolve 2018-05-22 M emoria (disorder) d 13:12:48 l [place] Arthritis (disorder) Resolved Problem 05/22/2018 [facility] Strain of Problem Resolve 2018-05-22 M emoria back d 13:12:48 l muscle Strain [place] (disorder) of back muscle (disorder) Resolved Problem 05/22/2018 [facility] Fracture Problem Resolve 2018-05-22 Me moria of forearm d 13:12:48 l (disorder) Fracture He rmann of forearm (disorder) Resolved Problem 05/22/2018 Left [facility] Bronchitis Problem Resolve 2018-05-22 Memoria (disorder) d 13:12:48 l [place] Bronchitis (disorder) Resolved Problem 05/22/2018 [facility] External Problem Resolve 2018-05-22 Me moria hemorrhoid d 13:12:48 l s External [place] (disorder) hemorrhoid s (disorder) Resolved Problem 05/22/2018 [facility] Fatigue Problem Resolve 2018-05-22 Mem oria (finding) d 13:12:48 l Fatigue [place] (finding) Resolved Problem 05/22/2018 [facility] Idiopathic Problem Resolve 2018-05-22 Memoria peripheral d 13:12:48 l autonomic [place] neuropathy Idiopathic (disorder) peripheral autonomic neuropathy (disorder) Resolved Problem 05/22/2018 [facility] Viral Problem Resolve 2018-05-22 Gerry kenneth pneumonia d 13:12:48 l (disorder) Viral [place] nn pneumonia (disorder) Resolved Problem 05/22/2018 [facility] Arthritis Problem Active 2018-05-22 Me moria of knee 13:12:48 l (disorder) [place] Arthritis of knee (disorder) Active Problem 05/22/2018 Data migrated from [employer] on 04/30/15. [facility] Asthma Problem Active 2018-05-22 Memor ia (disorder) 13:12:48 l Asthma [place] (disorder) Active Problem 05/22/2018 Data migrated from [employer] on 04/30/15. [facility] Atrial Problem Active 2018-05-22 Memor ia fibrillati 13:12:48 l on Atrial [place] (disorder) fibrillati on (disorder) Active Problem 05/22/2018 Data migrated from [employer] on 04/30/15. [facility] Benign Problem Active 2018-05-22 Memor ia essential 13:12:48 l hypertensi Benign Herm jesús on essential (disorder) hypertensi on (disorder) Active Problem 05/22/2018 Data migrated from [employer] on 04/30/15. [facility] Benign Problem Active 2018-05-22 Memor ia prostatic 13:12:48 l hypertroph Benign Herm jesús with prostatic outflow hypertroph obstructio with n outflow (disorder) obstructio n (disorder) Active Problem 05/22/2018 Data migrated from [employer] on 04/30/15. [facility] Chronic Problem Active 2018-05-22 Gerry kenneth obstructiv 13:12:48 l e lung Chronic [place] disease obstructiv (disorder) e lung disease (disorder) Active Problem 05/22/2018 Data migrated from [employer] on 04/30/15. [facility] Osteopenia Problem Active 2018-05-22 M emoria (disorder) 13:12:48 l [place] Osteopenia (disorder) Active Problem 05/22/2018 Data migrated from [employer] on 04/30/15. [facility] Peripheral Problem Active 2018-05-22 M emoria nerve 13:12:48 l disease [place] (disorder) Peripheral nerve disease (disorder) Active Problem 05/22/2018 Data migrated from [facility] on 04/30/15. [facility] ATRIAL Condition Active 2014-12-28 Mem oria FIBRILLATI 10:30:00 l ON ATRIAL [place] FIBRILLATI ON Active Condition 12/28/2014 [facility] ESSENTIAL Condition Active 2014-12-28 Memoria HYPERTENSI 10:30:00 l ON, BENIGN [place] ESSENTIAL HYPERTENSI ON, BENIGN Active Condition 12/28/2014 [facility] OSTEOPENIA Condition Active 2014-12-28 Memoria 10:30:00 l [place] OSTEOPENIA Active Condition 12/28/2014 [facility] COPD Condition Active 2014-12-28 Mem oria 10:30:00 l COPD [place] Active Condition 12/28/2014 [facility] ASTHMA, Condition Active 2014-12-28 Me moria UNSPECIFIE 10:30:00 l D, ASTHMA, [place] UNSPECIFIE UNSPECIFIE D STATUS D, UNSPECIFIE D STATUS Active Condition 12/28/2014 [facility] BENIGN Condition Active 2014-12-28 Mem oria PROSTATIC 10:30:00 l HYPERTROPH BENIGN Herm jesús Y, WITH PROSTATIC URINARY HYPERTROPH OBSTRUCTIO Y, WITH N URINARY OBSTRUCTIO N Active Condition 12/28/2014 [facility] ARTHRITIS, Condition Active 2014-12-28 [facility] KNEES, 10:30:00 l BILATERAL [place] ARTHRITIS, KNEES, BILATERAL Active Condition 12/28/2014 [facility] PERIPHERAL Condition Active 2014-12-28 [facility] NEUROPATHY 10:30:00 l [place] PERIPHERAL NEUROPATHY Active Condition 12/28/2014 [facility] Allergies, Adverse Reactions, Alerts This patient has no known allergies or adverse reactions. Social History Social Habit Start Date Stop Date Quantity Comments Source Social History 2016-02-06 2016-02-06 [facility] 17:00:20 17:00:20 Medications Ordered Filled Start Stop Current Ordering Indication Dosage Frequency Signature Comments Components Source Medication Medication Date Date Medication? Clinician (SIG) Name Name naproxen Yes 500 mg = 1 Mem oria 500 mg oral 3-15 tab, PO, l tablet 19:15: PRN, PRN [place] 31 Pain Score 6-10, # 30 caplet, 6 Refill(s), Pharmacy: [facility] Amlodipine Yes See Memoria 10 MG / 3-15 Instructio l Benazepril 19:13: ns, TAKE 1 H ermann hydrochlori 50 CAPSULE de 40 MG DAILY, # Oral 90 tab, 3 Capsule Refill(s), Pharmacy: [facility] naproxen No 500 mg = 1 Mem oria 500 mg oral 1-15 tab, PO, l tablet 15:43: PRN, PRN Pain Score 6-10, # 30 caplet, 6 Refill(s), Pharmacy: [facility] NAPROXEN 2012-12 No PRN Memoria SODIUM 550 1-05 l MG TABS 00:00: LOTREL 5-20 2012-12 Yes 1 tablet Me moria MG CAPS 1-05 twice day l 00:00: NAPROXEN 2012-12 Yes 1 tablet Memor ia 500 MG TABS 1-05 daily l 00:00: MULTAQ 400 2012-12 Yes 1 tablet Mem oria MG TABS 1-05 twice day l 00:00: PRADAXA 150 2012-12 Yes 1 tablet Me moria MG CAPS 1-05 daily l 00:00: CENTRUM 2012-12 Yes Memoria SILVER 1-05 l ULTRA MENS 00:00: TABS SUPER 2012-12 Yes Memoria B-COMPLEX 1-05 l CAPS 00:00: DEXILANT 30 2012-12 Yes Memori a MG CPDR 1-05 l 00:00: NAPROXEN 2012-12 No PRN Memoria SODIUM 550 1-05 l MG TABS 00:00: NAPROXEN 2012-12 Yes 1 tablet Memor ia 500 MG TABS 1-05 daily l 00:00: MULTAQ 400 2012-12 Yes 1 tablet Mem oria MG TABS 1-05 twice day l 00:00: PRADAXA 150 2012-12 Yes 1 tablet Me moria MG CAPS 1-05 daily l 00:00: Vital Signs Vital Name Observation Time Observation Value Comments Source Temperature Oral (F) 2018-02-13 18:48:00 [facility].5 F [facility] 2018-02-13 18:48:00 [facility] [place] BMI Calculated 2018-02-13 18:48:00 Memori al [place] Height 2018-02-13 18:48:00 190.5 cm [facility] [place] Weight 2018-02-13 18:48:00 [facility] [place] Systolic (mm Hg) 2018-02-13 18:48:00 Gerry rial [place] Diastolic (mm Hg) 2018-02-13 18:48:00 Mem orial [place] Weight 2014-12-28 15:46:50 [facility] [place] Temperature Oral (F) 2014-12-28 15:46:50 98.1 F [facility] [place] Heart Rate 2014-12-28 15:46:50 [facility] [place] Systolic (mm Hg) 2014-12-28 15:46:50 Gerry rial [place] Diastolic (mm Hg) 2014-12-28 15:46:50 Mem orial [place] Height 2014-12-28 15:46:50 [facility] [place] Weight 2013-10-06 20:34:21 [facility] [place] Temperature Oral (F) 2013-10-06 20:34:21 97.0 F [facility] [place] Heart Rate 2013-10-06 20:34:21 [facility] [place] Systolic (mm Hg) 2013-10-06 20:34:21 Gerry rial [place] Diastolic (mm Hg) 2013-10-06 20:34:21 Mem orial [place] Height 2013-10-06 20:34:21 [facility] [place] Procedures Procedure Date / Time Performed Performing Clinician [facility] Collection of venous 2018-02-13 18:56:00 Memoria l [place] blood by venipuncture bone density 2010-08-11 14:20:47 [facility] Her davis Procedure on eye [facility] [place] Procedure on wrist [facility] Herm jesús Sebaceous cyst [facility] [place] removal<sup>1</sup> Encounters Start End Encounter Admission Attending Care Care Encounter Source Date/Time Date/Time Type Type Clinicians Facility Department ID 2018-03-31 2018-03-31 Ambulatory nullFlavo [facility] [id number] Memoria 15:30:00 15:30:00 Pre-Reg r Primary 02 l Care [place] Cox 2018-03-31 2018-03-31 Outpatient EDMAR HYATT [id number] [facility]oria 10:30:00 10:30:00 02 l [place] 2018-03-31 2018-03-31 Outpatient Perez, BIPIN [facility] [id number] 10:30:00 10:30:00 Vivian 02 2018-03-31 2018-03-31 Outpatient Perez, MG [facility] [id number] 10:30:00 10:30:00 Vivian 2018-02-13 2018-02-14 [place] [id number] [facility] 19:00:00 04:59:59 r Primary 01 [facility] 2018-02-13 2018-02-13 Outpatient Granier, MHMG [facility] [id number] 14:00:00 23:59:59 Jordon 2018-02-13 2018-02-13 Outpatient MHIE [facility] [id number] Memoria 14:00:00 14:00:00 01 sharon Garzon 2017-12-16 2017-12-18 Phone nullFlavo [facility] [id number] Memoria 15:18:00 05:59:59 Message r Primary 01 [facility] 2017-12-16 2017-12-17 Outpatient [facility] [id number] 09:18:00 23:59:59 01 2014-12-28 2014-12-28 Office nullFlavo [facility] [id number] [facility]oria 00:00:00 00:00:00 Visit mariah Garzon [id number] sharon [facility] 2014-12-28 2014-12-28 Lab Report nullFlavo [facility] [id number] Memoria 00:00:00 00:00:00 mariah Garzon [id number] l [facility] 2013-10-06 2013-10-06 Lab Report nullFlavo [facility] [id number] Memoria 00:00:00 00:00:00 mariah Garzon [id number] l [facility] Results Test Description Test Time Test Comments Results Result Comments Source Chemistry 2014-12-28 159 [facility] [place] 16:30:00 Chemistry 2014-12-28 48 [facility] [place] 16:30:00 Chemistry 2014-12-28 63 [facility] [place] 16:30:00 Chemistry 2014-12-28 86 [facility] [place] 16:30:00 Chemistry 2014-12-28 140 MEQ/L [facility] [place] 16:30:00 Chemistry 2014-12-28 4.6 MEQ/L [facility] [place] 16:30:00 Chemistry 2014-12-28 1.2 [facility] [place] 16:30:00 Chemistry 2014-12-28 22 [facility] [place] 16:30:00 Chemistry 2014-12-28 16:30:00 Test Item Value Reference Range Interpretation Comme nts BUN/CREAT (test code = BUN/CREAT) 18 1 05-26 Memorial DmzuhdyXllmvqcbo0278-87-58 16:30:004.2[facility]ann[facility] 2014-12-28 16:30:009.0[facility] YqxgucuWpknhhjhf2035-02-93 16:30:0025[facility] LwtrjyjQqzktseat3333-94-99 16:30:0023[facility] JzkvywcGpsetfujl7074-18-98 16:30:0078Memorial LxmucrdEreudzvqz8660-65-95 16:30:001.960[facility] [place] Nskeqccpr9872-25-81 16:30:002.46[facility]orial FichggcKfovsddvnj7732-39-14 16:30:00 16.0[facility]orial OtqbrprZvqqvvlvon4937-73-91 16:30:0046.0[facility] HermannHematology 2014-12-28 16:30:54203 K/CMMMemorial KmlewbhPbvqswbyi0004-42-64 21:30:0019 Memorial KhmxugkWrgtfayea3802-34-20 21:30:0080[facility]ann[facility] 2013-10-06 21:30:001.570[facility] OqvlpviCkckuewih1167-53-47 21:30:0080[facility] WtvklsqTiejtqylj6174-25-74 21:30:001.570[facility]orial MvuzpxcXzqnjfupp8077-91-97 21:30:002.54[facility] WuiwuxeAhlinmjjxn4256-92-24 21:30:0015.4[facility] [place] Rbzyouupbl3848-85-32 21:30:0045.7[facility] LvgjdozWmmbvkaulo9818-61-93 21:30:00 177 K/CMMMemorial LbphhdaHfmxjqbvhi7757-93-24 21:30:0015.4[facility] [place] Ousuquluox2938-19-85 21:30:0045.7[facility]orial DmprdelGusnxggnff9966-55-84 21:30:00 177 K/CMMMemorial WcpvansMugudjaqf3483-59-62 21:30:08632Zkinedkl [place] Efqeatrcf7199-87-11 21:30:0045[facility] ZqlmsynTatkswtdn1463-54-15 21:30:0069 Memorial MemldzpLmhwmzrtv4523-16-88 21:30:83973Xvpqzuep HermannChemistry 2013-10-06 21:30:0045Memorial FymxqsfIjhwetjrr5587-26-38 21:30:0069Memorial ExxtnzqQkrsviehx7744-55-70 21:30:74111 MEQ/LMemorial GaamyrbXefsqqkaa1282-09-30 21:30:004.2 MEQ/LMemorial HborwmlSovaoizyw5328-70-10 21:30:001.0[facility] [place] Lsxqsjrrk5708-52-50 21:30:0018[facility] WfmmipqAkveizkif7840-02-01 21:30:00 Test Item Value Reference Range Interpretation Comments BUN/CREAT (test code = BUN/CREAT) 18 1 6-25 Memorial XlzefmfQxudlxqfs0483-17-53 21:30:004.3[facility]annChemistry 2013-10-06 21:30:009.3[facility] OzdcbmuHbsggzgir1675-25-15 21:30:0027Mem[facility] IxozrtcAmhmigqpg3579-85-60 21:30:0019Memorial WsuklisPxrjuccgq1952-22-86 21:30:002.54Memorial GtstpbePgyyqjupe2960-37-58 21:30:0045[facility] [place] Opyjqdauz7638-48-56 21:30:0069Memorial BcthuubRmkcdcfsa6793-84-63 21:30:32014 Memorial RrwetcoGnnwfaxwt6966-62-76 21:30:0045[facility] HermannChemistry 2013-10-06 21:30:0069Memorial OwnoysdIejqrqvxi9231-70-14 21:30:76301Zflpvfsz PgjcznjCbiybezla2832-17-73 21:30:68258 MEQ/LMemorial JjslwfkXymjyvyjm3257-77-35 21:30:004.2 MEQ/LMemorial TrgfbctUmjvvkzly9915-41-82 21:30:001.0[facility] [place] Sffxxrdrb4472-09-98 21:30:0018[facility] YtoswcsHeqcxqhca7141-72-68 21:30:00 Test Item Value Reference Range Interpretation Comments BUN/CREAT (test code = BUN/CREAT) 18 1 05-26 [facility] WaelkdqJhmoslcgx3503-30-81 21:30:004.3[facility]annChem[facility] 2013-10-06 21:30:009.3[facility] MtvtyamHpdgcwqme5114-26-64 21:30:0027Mem[facility] YfwwhmkYlbpbpzrv4632-15-26 14:22:173.3[facility] BvxkejaWkvwsbuuf5213-34-29 14:22:173.3[facility] EligccmYthxfmdnm1891-84-38 14:20:473.3[facility] [place] Rxgchohnf4511-79-39 14:20:473.3[facility] [place]
[2021-08-11] MEDS ORDERED: NA CHLORIDE 0.9% 1,000 ML ONE (14:11)
[2021-08-11 14:20] LABS: Absolute Lymphocytes (CBC) 0.8 K/uL (0.7-4.9); Basophils % 0.2 % (0-1.3); Hematocrit 46.5 % (39.6-49.0); Lymphocytes % 13.3 % (15.3-44.8); MPV 9.1 fL (7.6-11.3); RBC Red Blood Cell Count 4.91 M/uL (4.33-5.43)
[2021-08-11 14:25] LABS: Protime INR 1.35
[2021-08-11 14:37] LABS: ALT/SGPT 33 U/L (12-78); AST/SGOT 56 U/L (15-37); Albumin 3.5 g/dL (3.4-5.0); Alkaline Phosphatase 80 U/L (45-117); Bilirubin Direct 0.3 mg/dL (0-0.2); Bilirubin Total 0.9 mg/dL (0.2-1.0); Ferritin 945.7 ng/mL (26-388); Lipase 144 U/L (73-393); Protein, Total 7.1 g/dL (6.4-8.2); Troponin (Emerg Dept Use Only) < 0.02 ng/mL (0.0-0.045)
--- NOTE | 2021-08-11 14:49 | RAD REPORT ---
EXAM DESCRIPTION: RAD - Chest Single View - 08/11/2021 2:36 pm CLINICAL HISTORY: SOB, COVID positive COMPARISON: April 2019 TECHNIQUE: AP portable chest image was obtained 08/11/2021 2:36 pm . FINDINGS: Patient has a baseline fibro emphysematous lung pattern. Focal interstitial and alveolar o pacities are present in the mid right lung field believed to be a right upper lobe early pneumonia ab utting the minor fissure. Minimal patchy lateral right base opacification present as well though this is not clearly different from baseline. Left lung field is not clearly different from comparison. Heart size is upper normal, similar to comparison. Upper lobe vasculature within normal limits. No m easurable pleural effusion and no pneumothorax. No acute bony abnormality seen. No acute aortic findi ngs suspected. IMPRESSION: Right midlung field early pneumonia superimposed on chronic fibrotic lung change. Pattern is not a classic presentation but would be consistent with COVID pneumonia given the provided history.
[2021-08-11] MEDS ORDERED: METHYLPREDNISOLONE 125 MG INJ ONE (16:28)
[2021-08-11 16:35] LABS: Potassium 4.8 mmol/L (3.5-5.1)
[2021-08-11 17:13] LABS: Blood Morphology Comment NOT SEEN (NOT SEEN); Platelet Estimate DECR; White Blood Cell Scan OK (OK)
--- NOTE | 2021-08-11 17:18 | RAD REPORT ---
EXAM DESCRIPTION: CT - Chest For Pe Angio - 08/11/2021 5:05 pm CLINICAL HISTORY: SOB , COVID positive, cough, body aches COMPARISON: Chest For Pe Angio dated 06/09/2018; Chest Single View dated 08/11/2021 TECHNIQUE: Dynamically enhanced 3 mm thick images of the chest were obtained during administration o f approximately 150mL Isovue 370 IV contrast. Coronal and oblique MIP reconstruction images were gene rated and reviewed. Exam utilizes a protocol to evaluate the pulmonary arterial tree. All CT scans are performed using dose optimization technique as appropriate and may include automated exposure control or mA/KV adjustment according to patient size. FINDINGS: Exam has significant motion degradation limitations. No pulmonary emboli are identifiable. The aorta as imaged shows no acute or suspicious finding. No pericardial thickening or effusion. Card iomegaly is present. Interstitial and alveolar opacities are present in the periphery of the right upper lobe most notable in the posteroinferior right upper lobe abutting the minor fissure. Patient has additional interstit ial and patchy alveolar opacities in each posterior mid and inferior lower lobe. No pleural effusion or pleural thickening. No mediastinal or hilar suspicious masses. No chest wall masses or abnormal axillary lymphadenopathy. No endobronchial lesions. IMPRESSION: Limited motion degraded study without evidence for pulmonary emboli. Bilateral pneumonia findings are present and would be consistent with a mild to moderate COVID-19 pne umonia superimposed on fibrosis.
--- NOTE | 2021-08-11 17:23 | RAD REPORT ---
EXAM DESCRIPTION: CT - Abdomen Pelvis W Contrast - 08/11/2021 5:05 pm CLINICAL HISTORY: diarrhea, abdominal pain, COVID positive COMPARISON: Abdomen Pelvis W Contrast dated 05/22/2018 TECHNIQUE: Biphasic, helical CT imaging of the abdomen and pelvis was performed following 100 ml non -ionic IV contrast. No oral contrast administered. All CT scans are performed using dose optimization technique as appropriate and may include automated exposure control or mA/KV adjustment according to patient size. FINDINGS: Lung bases are separately detailed in CT angio report. Left hemidiaphragm elevation is present. Exam has significant motion degradation limitation. The liver, spleen and pancreas are without gross abnormality. Multiple gallstones are present in a no rmal size gallbladder. No wall thickening, edema or pericholecystic fluid. No biliary tree dilatation . Symmetric renal function is seen with no hydronephrosis or suspicious renal mass. No pyelonephritis o r acute parenchymal process. Renal cortical cysts are present. Dense calcifications present in the le ft renal artery. Bladder diverticula seen and a mostly contracted urinary bladder. Enlarged lobulated prostate gland is present. No adrenal abnormalities. Gastric lumen is empty. This accentuates gastric wall thickness. Antritis/gastritis cannot be exclude d. No duodenitis findings. Small bowel shows no dilatation. A few fluid-filled distal small bowel loo ps are present. Appendicitis is not suspected. Diverticulosis present left side colon without diverti culitis. No free air, free fluid or inflammatory stranding. No mass or bulky lymphadenopathy. Fat filled ri ght inguinal hernia present. Prominent disc and bone degenerative changes are present. IMPRESSION: No obstruction, free air or surgically emergent finding identifiable. A few fluid-filled small bowel loops are present and enteritis cannot be excluded. Likewise, antritis /gastritis cannot be excluded. Cholelithiasis without acute gallbladder or biliary tree finding.
[2021-08-11] MEDS ORDERED: CASIRIVIMAB/IMDEVIMAB 10 ML VIAL ONE (18:20)
[2021-08-11] MEDS ORDERED: NA CHLORIDE 0.9% 250 ML ONE (18:21)
--- NOTE | 2021-08-11 20:59 | EDPHYS ---
Physician Documentation [facility] Name: Casey Keen Age: 76 yrs Sex: Male : 1945 Arrival Date: 08/11/2021 Time: 12:55 Bed 11 Private MD: ED Physician Sanford Enriquez HPI: 08/11 16:00 This 76 yrs old Male presents to ER via Wheelchair with complaints of Covid cp +- Dehydration. 16:00 The patient has shortness of breath with light activity. Onset: The symptoms/episode cp began/occurred gradually. 16:00 The patient presents to the emergency department with diarrhea, that is continuous. cp Patient reports he received positive test results for COVID-19 today and that symptoms started with sore throat on 08-03-2021. Patient reports receiving J\T\J vaccine in March 2021. recently tested positive for COVID-19. Patient c/o continues diarrhea. Historical: - Allergies: 13:33 No Known Allergies; iw - Home Meds: 13:33 Pradaxa oral [Active]; amlodipine oral [Active]; Metoprolol Tartrate Oral [Active]; iw - PMHx: 13:33 Hypertension; iw 15:50 Atrial fibrillation; cp - PSHx: 13:33 None; iw - Immunization history:: Client reports receiving the Santi \T\ Santi single-dose vaccine. - Social history:: Smoking status: Patient/guardian denies using tobacco, the patient reports quitting approximately 10 years ago. ROS: 16:05 Constitutional: Positive for poor PO intake, Negative for body aches, chills, fever. cp 16:05 Cardiovascular: Negative for chest pain, edema, palpitations. cp 16:05 Respiratory: Positive for cough, with no reported sputum, shortness of breath, at rest. Negative for wheezing. 16:05 Eyes: Negative for injury, pain, redness, and discharge. cp 16:05 ENT: Negative for drainage from ear(s), ear pain, sore throat, difficulty swallowing, cp difficulty handling secretions. 16:05 Abdomen/GI: Positive for diarrhea, anorexia, Negative for vomiting, constipation, black/tarry stool, rectal bleeding. 16:05 Neuro: Positive for weakness, Negative for altered mental status, dizziness, headache, syncope. 16:05 All other systems are negative. Exam: 16:02 ECG was reviewed by the Attending Physician. cp 16:10 Constitutional: The patient appears in no acute distress, alert, awake, cp non-diaphoretic, non-toxic, well developed, well nourished. 16:10 Head/Face: Normocephalic, atraumatic. cp 16:10 Eyes: Periorbital structures: appear normal, Conjunctiva: normal, no exudate, no injection, Sclera: no appreciated abnormality, Lids and lashes: appear normal, bilaterally. 16:10 ENT: External ear(s): are unremarkable, Nose: is normal, Mouth: Lips: dry, Oral mucosa: moist, Posterior pharynx: Airway: no evidence of obstruction, patent. 16:10 Chest/axilla: Inspection: normal, Palpation: is normal, no crepitus, no tenderness. 16:10 Cardiovascular: Rate: normal, Rhythm: irregular, Edema: is not appreciated, JVD: is not appreciated. 16:10 Respiratory: the patient does not display signs of respiratory distress, Respirations: labored breathing, is not present, shallow respirations, that is mild, Breath sounds: decreased breath sounds, are not appreciated, stridor, is not appreciated, wheezing: is not appreciated. 16:10 Abdomen/GI: Inspection: abdomen appears normal, Bowel sounds: active, all quadrants, Palpation: soft, in all quadrants, mild abdominal tenderness, in the right lower quadrant, rebound tenderness, is not appreciated, involuntary guarding, is not appreciated. 16:10 Back: pain, is absent, ROM is normal. 16:10 Neuro: Orientation: to person, place \T\ time. Mentation: is normal, Motor: moves all fours, strength is normal. Vital Signs: 13:30 BP 95 / 60; Pulse 90; Resp 20; Temp 100.1(TE); Pulse Ox 96% on R/A; Weight 76.66 kg; iw Height 6 ft. 3 in. (190.50 cm); 16:10 BP 110 / 69; Pulse 97; Resp 28 S; Temp 99.2(TE); Pulse Ox 93% on R/A; aa5 18:50 BP 99 / 76; Pulse 90; Resp 30 S; Pulse Ox 92% on R/A; aa5 19:25 BP 96 / 70; Pulse 84; Resp 26 S; Pulse Ox 91% on R/A; aa5 21:15 BP 101 / 75; Pulse 95; Resp 21; Temp 97.7(TE); Pulse Ox 91% on R/A; oe 13:30 Body Mass Index 21.12 (76.66 kg, 190.50 cm) MDM: 15:49 Patient medically screened. 17:00 Differential diagnosis: gastritis, gastroenteritis, dehydration, sepsis pneumonia, cp pulmonary edema, Pulmonary Embolism Sepsis. 17:40 Data reviewed: vital signs, nurses notes, lab test result(s), EKG, radiologic studies, cp CT scan, plain films. 17:40 Test interpretation: by ED physician or midlevel provider: ECG, plain radiologic cp studies. 18:00 Transition of care: After a detail discussion of the patient's case, care is cp transferred to Natanael CHRISTINE. 18:00 ED course: Will continue to monitor patient and treat with Regen-COV. 08/11 13:35 Order name: CBC with Diff; Complete Time: 17:31 08/11 15:37 Interpretation: Normal except: MCV 94.7; PLT 92; OMAR% 79.3; LYM% 13.3. 08/11 13:35 Order name: Basic Metabolic Panel; Complete Time: 17:09 08/11 17:10 Interpretation: Normal except: NA 130; BUN 31; CRE 1.43; GFR 48. 08/11 13:45 Order name: C-Reactive Protein; Complete Time: 15:37 08/11 16:20 Interpretation: Abnormal: C-REACTIVE PROT 113.00. 08/11 13:45 Order name: D-Dimer; Complete Time: 15:37 08/11 13:45 Order name: Ferritin; Complete Time: 15:37 08/11 13:45 Order name: LFT's; Complete Time: 15:37 08/11 16:19 Interpretation: Normal except: AST 56; BILID 0.3; GLOB 3.6; A/G 1.0. 08/11 13:45 Order name: Lipase; Complete Time: 15:37 08/11 13:45 Order name: PT-INR; Complete Time: 15:37 08/11 13:45 Order name: Procalcitonin; Complete Time: 15:37 08/11 13:45 Order name: Ptt, Activated; Complete Time: 15:37 iw 08/11 13:45 Order name: Troponin (emerg Dept Use Only); Complete Time: 15:37 iw 08/11 13:45 Order name: CXR XRAY; Complete Time: 15:37 iw 08/11 15:39 Order name: CT Chest For PE Angio; Complete Time: 17:31 cp 08/11 17:14 Order name: CBC Smear Scan; Complete Time: 17:31 EDMS 08/11 13:45 Order name: EKG; Complete Time: 13:45 iw 08/11 13:45 Order name: Cardiac monitoring; Complete Time: 15:49 iw 08/11 13:45 Order name: EKG - Nurse/Tech; Complete Time: 16:04 iw 08/11 13:45 Order name: IV Start; Complete Time: 15:49 iw 08/11 13:45 Order name: Labs collected and sent; Complete Time: 15:49 iw 08/11 13:45 Order name: O2 Per Protocol; Complete Time: 15:49 iw 08/11 13:45 Order name: O2 Sat Monitoring; Complete Time: 15:49 iw 08/11 15:39 Order name: CT Abd/Pelvis - IV Contrast Only; Complete Time: 17:31 cp 08/11 16:20 Order name: INCENTIVE SPIROMETRY cp 08/11 17:45 Order name: INCENTIVE SPIROMETRY cp EC:02 Rate is 98 beats/min. Rhythm is irregular. QRS interval is normal. QT interval is cp normal. T waves are Inverted in lead aVR. Interpreted by me. Reviewed by me. Administered Medications: 14:00 Drug: NS 0.9% 500 ml Route: IV; Rate: bolus; Site: left forearm; iw 15:30 Follow up: IV Status: Completed infusion; IV Intake: 500ml aa5 16:10 Drug: SOLU-Medrol (methylPrednisoLONE) 125 mg Route: IVP; Site: left antecubital; aa5 16:15 Follow up: Response: No adverse reaction aa5 17:31 CANCELLED (Physician Discretion): NS 0.9% 500 ml IV at 250 ml/hr continuous aa5 18:45 Drug: NS 0.9% 500 ml Route: IV; Rate: 50 ml/hr; Site: right wrist; aa5 18:45 Drug: REGEN-COV Dose Pack 120 mg/mL-120 mg/mL (EUA) 260 ml Route: IV; Rate: calculated aa5 rate; Site: right wrist; 19:50 Follow up: Response: No adverse reaction; IV Status: Completed infusion aa5 Disposition: 22:08 Co-signature as Attending Physician, Sanford Enriquez MD I agree with the assessment and kdr plan of care. Disposition Summary: 08/11/21 20:58 Discharge Ordered Location: Home jm Condition: Stable jm Diagnosis - Coronavirus infection, unspecified jm Followup: jm - With: Private Physician - When: 2 - 3 days - Reason: Recheck today's complaints, Continuance of care, Re-evaluation by your physician Discharge Instructions: - Discharge Summary Sheet [facility] - COVID-19 [facility] Forms: - Medication Reconciliation Form [facility] - Thank You Letter [facility] - Antibiotic Education [facility] - Prescription Opioid Use [facility] Signatures: Dispatcher [employer] EDMS Sanford Enriquez MD MD kdr Mickail, Joel, PA PA jmm Cari Doyle RN RN Brittney Quinn RN RN aa5 Aris aLmb PA PA cp Corrections: (The following items were deleted from the chart) 17:31 17:11 NS 0.9% 500 ml IV at 250 ml/hr continuous ordered. cp aa5
--- NOTE | 2021-08-11 20:59 | ER ---
Nurse's Notes [facility] Name: Casey Keen Age: 76 yrs Sex: Male : 1945 Arrival Date: 08/11/2021 Time: 12:55 Bed 11 Private MD: Diagnosis: Coronavirus infection, unspecified Presentation: 08/11 13:30 Chief complaint: Patient states: tested positive for COVID today, symptoms started 5 iw days ago, has had diarrhea, body aches, no vomiting, +cough , feels dehydrated. Coronavirus screen: Client presents with at least one sign or symptom that may indicate coronavirus-19. Client reports previous positive COVID test result. Ebola Screen: Patient negative for fever greater than or equal to 101.5 degrees Fahrenheit, and additional compatible Ebola Virus Disease symptoms Patient denies exposure to infectious person. Patient denies travel to an Ebola-affected area in the 21 days before illness onset. No symptoms or risks identified at this time. Initial Sepsis Screen: Does the patient meet any 2 criteria? No. Patient's initial sepsis screen is negative. Does the patient have a suspected source of infection? No. Patient's initial sepsis screen is negative. Risk Assessment: Do you want to hurt yourself or someone else? Patient reports no desire to harm self or others. 13:30 Method Of Arrival: Wheelchair iw 13:30 Acuity: MALU 3 iw Historical: - Allergies: 13:33 No Known Allergies; iw - Home Meds: 13:33 Pradaxa oral [Active]; amlodipine oral [Active]; Metoprolol Tartrate Oral [Active]; iw - PMHx: 13:33 Hypertension; iw 15:50 Atrial fibrillation; cp - PSHx: 13:33 None; iw - Immunization history:: Client reports receiving the Santi \T\ Santi single-dose vaccine. - Social history:: Smoking status: Patient/guardian denies using tobacco, the patient reports quitting approximately 10 years ago. Screenin:30 Abuse screen: Denies threats or abuse. Nutritional screening: No deficits noted. aa5 Tuberculosis screening: No symptoms or risk factors identified. Fall Risk IV access (20 points). Ambulatory Aid- Crutches/Cane/Walker (15 pts). Total Mcneil Fall Scale indicates Low Risk Score (25-44 pts). Fall prevention measures have been instituted. Side Rails Up X 2 Placed close to Nursing Station. Assessment: 15:30 General: Appears uncomfortable, Behavior is calm, cooperative. Pain: Complains of pain aa5 in whole body Pain currently is 7 out of 10 on a pain scale. Quality of pain is described as aching, Pain began 1-2 weeks ago Is continuous. Neuro: Level of Consciousness is awake, alert, obeys commands, Oriented to person, place, time, situation, Reports generalized weakness x 1-2 weeks ago. Cardiovascular: Heart tones S1 S2 present Rhythm is atrial fibrillation. Respiratory: Reports shortness of breath on exertion cough that is productive, Airway is patent Respiratory effort is even, unlabored, Respiratory pattern is tachypnea Breath sounds are diminished bilaterally. GI: Abdomen is round non-distended, Bowel sounds present X 4 quads. Abd is soft and non tender X 4 quads. Reports diarrhea. : No signs and/or symptoms were reported regarding the genitourinary system. EENT: No signs and/or symptoms were reported regarding the EENT system. Derm: Skin is pink, warm \T\ dry. 15:30 Reassessment: 20G to L FA noted . aa5 16:15 Reassessment: Patient is alert, oriented x 3, equal unlabored respirations, skin aa5 warm/dry/pink. Awaiting CT scan. 17:59 Reassessment: REGEN-COV consent signed by pt (see pt's chart). aa5 17:59 Reassessment: Patient is alert, oriented x 3, equal unlabored respirations, skin aa5 warm/dry/pink. 19:25 Reassessment: Patient is alert, oriented x 3, equal unlabored respirations, skin aa5 warm/dry/pink. No adverse reactions noted to REGEN-COV. 19:50 Reassessment: Patient is alert, oriented x 3, equal unlabored respirations, skin aa5 warm/dry/pink. Pt and pt's aware of 1 hr observation post infusion. . 21:37 Reassessment: Patient is alert, oriented x 3, equal unlabored respirations, skin bb warm/dry/pink. pt verbalized understanding of and agrees to plan of care discharge instructions given pt assisted to exit by this RN via wheelchair. Vital Signs: 13:30 BP 95 / 60; Pulse 90; Resp 20; Temp 100.1(TE); Pulse Ox 96% on R/A; Weight 76.66 kg; iw Height 6 ft. 3 in. (190.50 cm); 16:10 BP 110 / 69; Pulse 97; Resp 28 S; Temp 99.2(TE); Pulse Ox 93% on R/A; aa5 18:50 BP 99 / 76; Pulse 90; Resp 30 S; Pulse Ox 92% on R/A; aa5 19:25 BP 96 / 70; Pulse 84; Resp 26 S; Pulse Ox 91% on R/A; aa5 21:15 BP 101 / 75; Pulse 95; Resp 21; Temp 97.7(TE); Pulse Ox 91% on R/A; oe 13:30 Body Mass Index 21.12 (76.66 kg, 190.50 cm) iw ED Course: 12:55 Patient arrived in ED. ds1 13:32 Triage completed. iw 13:35 Arm band placed on. iw 14:36 CXR XRAY In Process Unspecified. EDMS 15:30 Brittney Quinn, PEEWEE is Primary Nurse. aa5 15:30 Patient has correct armband on for positive identification. Bed in low position. Call aa5 light in reach. Side rails up X2. environmental monitoring technician on. Pulse ox on. NIBP on. 15:36 Aris Lamb PA is PHCP. cp 15:36 Sanford Enriquez MD is Attending Physician. cp 17:04 CT Chest For PE Angio In Process Unspecified. EDMS 17:04 CT Abd/Pelvis - IV Contrast Only In Process Unspecified. EDSC 17:55 PHCP role handed off by Aris Lamb PA [facility] 17:55 Natanael Mosley PA is PHCP. jmm 18:35 IV discontinued, intact, bleeding controlled, Pressure dressing applied, Swelling noted aa5 to left FA after NS flush. 20G to L FA was dc'd. 18:40 Inserted saline lock: 20 gauge in right wrist, using aseptic technique. aa5 19:15 Report given to PEEWEE Lan. aa5 21:38 No provider procedures requiring assistance completed. IV discontinued, intact, bb bleeding controlled, Pressure dressing applied. Administered Medications: 14:00 Drug: NS 0.9% 500 ml Route: IV; Rate: bolus; Site: left forearm; iw 15:30 Follow up: IV Status: Completed infusion; IV Intake: 500ml aa5 16:10 Drug: SOLU-Medrol (methylPrednisoLONE) 125 mg Route: IVP; Site: left antecubital; aa5 16:15 Follow up: Response: No adverse reaction aa5 17:31 CANCELLED (Physician Discretion): NS 0.9% 500 ml IV at 250 ml/hr continuous aa5 18:45 Drug: NS 0.9% 500 ml Route: IV; Rate: 50 ml/hr; Site: right wrist; aa5 18:45 Drug: REGEN-COV Dose Pack 120 mg/mL-120 mg/mL (EUA) 260 ml Route: IV; Rate: calculated aa5 rate; Site: right wrist; 19:50 Follow up: Response: No adverse reaction; IV Status: Completed infusion aa5 Intake: 15:30 IV: 500ml; Total: 500ml. aa5 Outcome: 20:58 Discharge ordered by . drew 21:38 Discharged to home ambulatory, with family. bb 21:38 Condition: stable 21:38 Discharge instructions given to patient, Instructed on discharge instructions, follow up and referral plans. medication usage, Demonstrated understanding of instructions, follow-up care, medications. 21:39 Patient left the ED. bb Signatures: Dispatcher [employer] EDMS Natanael Mosley PA PA jmm Sanford, Demi ds1 Edyta Bill RN RN bb Cari Doyle RN RN iw Calderon, Audri, RN RN aa5 Aris Lamb PA PA cp Espinosa, [place] oe Corrections: (The following items were deleted from the chart) 19:22 18:35 IV discontinued, intact, bleeding controlled, Pressure dressing applied, Swelling aa5 noted to left FA after NS flush. aa5 20:01 15:30 Respiratory: Reports shortness of breath on exertion cough that is productive, aa5 Airway is patent Respiratory effort is even, unlabored, Respiratory pattern is tachypnea Breath sounds are clear bilaterally. aa5
[2021-08-11 22:29] VITALS: TEMP 99.2
[2021-08-11 22:33] VITALS: BP 99/76; O2SAT 92
== END 2021-08-11 21:39 | disposition home or self-care (01) ==
LOC: ER 12:53
DX: U07.1 COVID-19 (principal); I10 Essential (primary) hypertension; I48.91 Unspecified atrial fibrillation
CPT/HCPCS: 96365; 96361; 93005; 85025; 80048; 36415; 85610; 85379; 80076; 85730; 84484; 82728; 83690; 84145; 86140; 71275; 74177; 71045; 96375; 99284; Q9967; J7050; J7030; J2930

== ENCOUNTER 2025-03-23 10:50 | Emergency (ER) | payer OTHER ==
--- OUTSIDE RECORDS SUMMARY | 2025-03-23 10:53 | XMS REPORT | Continuity of Care Document ---
Author Name Unknown Address [address] [facility] [address] [place] [address] [facility] [place] Address [address] [facility] [address] [place] [address] Care Team Providers Care Assembly Associate Name Role Phone MAUREEN SHAH Primary Care Physician Rakesh Lacy Attending Clinician ANDRES Stallings Attending Clinician Unavailable KNOW, DOES_NOT Admitting Clinician Unavailable Payers Payer Name Policy Type Policy Number Effective Date Expirati on Date Source [employer] MA[employer]GED MEDICARE PPO-VINCENT [id number] 2022 00:00:00 Problems Condition Name Condition Details Condition Category Status Onset Date Resolution Date Last Treatment Date Treating Clinician Comments Source Fracture of forearm (disorder) Fracture of forearm (disorder) Resolved Problem 05/22/2018 [facility] Problem Resolve d 2018-05-22 13:12:48 Geovany Garzon Bronchitis (disorder) Bronchitis (disorder) Resolved Problem 05/22/2018 Medical Group Problem Resolve d 2018-05-22 13:12:48 Geovany Garzon External hemorrhoid s (disorder) External hemorrhoid s (disorder) Resolved Problem 05/22/2018 Medical Group Problem Resolve d 2018-05-22 13:12:48 Geovany Garzon Fatigue (finding) Fatigue (finding) Resolved Problem 05/22/2018 Medical Group Problem Resolve d 2018-05-22 13:12:48 Memoria hsaron Garzon Idiopathic peripheral autonomic neuropathy (disorder) Idiopathic peripheral autonomic neuropathy (disorder) Resolved Problem 05/22/2018 Medical Group Problem Resolve d 2018-05-22 13:12:48 Memoria sharon Garzon Viral pneumonia (disorder) Viral pneumonia (disorder) Resolved Problem 05/22/2018 [facility] Group Problem Resolve d 2018-05-22 13:12:48 Memoria sharon Garzon Arthritis of knee (disorder) Arthritis of knee (disorder) Active Problem 05/22/2018 Data migrated from [employer] on 04/30/15. [facility] Group Problem Active 2018-05-22 13:12:48 Memoria sharon Garzon Asthma (disorder) Asthma (disorder) Active Problem 05/22/2018 Data migrated from [employer] on 04/30/15. [facility] Group Problem Active 2018-05-22 13:12:48 Memoria sharon Garzon Atrial fibrillati on (disorder) Atrial fibrillati on (disorder) Active Problem 05/22/2018 Data migrated from [employer] on 04/30/15. Medical Group Problem Active 2018-05-22 13:12:48 Memoria sharon Garzon Benign essential hypertensi on (disorder) Benign essential hypertensi on (disorder) Active Problem 05/22/2018 Data migrated from [employer] on 04/30/15. Medical Group Problem Active 2018-05-22 13:12:48 Mememilia Garzon Benign prostatic hypertroph with outflow obstructio n (disorder) Benign prostatic hypertroph with outflow obstructio n (disorder) Active Problem 05/22/2018 Data migrated from [employer] on 04/30/15. [facility] Group Problem Active 2018-05-22 13:12:48 Rubenoria sharon Garzon Chronic obstructiv e lung disease (disorder) Chronic obstructiv e lung disease (disorder) Active Problem 05/22/2018 Data migrated from [employer] on 04/30/15. Medical Group Problem Active 2018-05-22 13:12:48 Memoria sharon Garzon Osteopenia (disorder) Osteopenia (disorder) Active Problem 05/22/2018 Data migrated from [employer] on 04/30/15. Medical Group Problem Active 2018-05-22 13:12:48 Memoria sharon Garzon Peripheral nerve disease (disorder) Peripheral nerve disease (disorder) Active Problem 05/22/2018 Data migrated from [employer] on 04/30/15. Medical Group Problem Active 2018-05-22 13:12:48 Geovany Garzon Arthritis (disorder) Arthritis (disorder) Resolved Problem 05/22/2018 Medical Group Problem Resolve d 2018-05-22 13:12:48 Geovany Garzon Strain of back muscle (disorder) Strain of back muscle (disorder) Resolved Problem 05/22/2018 Medical Group Problem Resolve d 2018-05-22 13:12:48 Geovany Garzon Allergies, Adverse Reactions, Alerts Allergy Name Allergy Type Status Severity Reaction(s) Onset Date Inactive Date Treating Clinician Comments Source No Known Allergie s DA Active U 08-27 00:00: 00 [facility] NO KNOWN ALLERGIE S Drug Class Active [facility] Social History Social Habit Start Date Stop Date Quantity Comments Source Social History 2016-02-06 17:00:20 2016-02-06 17:00:20 Shelbi Garzon Medications Ordered Medication Name Filled Medication Name Start Date Stop Date Current Medication? Ordering Clinician Indication Dosage Frequency Signature (SIG) Comments Components Source naproxen 500 mg oral tablet 02-13 19:15: 31 Yes 500 mg = 1 tab, PO, PRN, PRN Pain Score 6-10, # 30 caplet, 6 Refill(s), Pharmacy: [facility] Geovany Garzon Amlodipine 10 MG / Benazepril hydrochlori de 40 MG Oral Capsule 02-13 19:13: 50 Yes See Instructio ns, TAKE 1 CAPSULE DAILY, # 90 tab, 3 Refill(s), [facility] Geovany Garzon naproxen 500 mg oral tablet 12-16 15:43: 00 No 500 mg = 1 tab, PO, PRN, PRN Pain Score 6-10, # 30 caplet, 6 Refill(s), Pharmacy: [facility] Geovany Garzon Vital Signs Vital Name Observation Time Observation Value Comments S ource Temperature Oral (F) 2018-02-13 18:48:00 98.5 F Shelbi Garzon Heart Rate 2018-02-13 18:48:00 Vinh Garzon BMI Calculated 2018-02-13 18:48:00 M emospike Garzon Height 2018-02-13 18:48:00 190.5 cm [facility] Weight 2018-02-13 18:48:00 [facility] [place] Systolic (mm Hg) 2018-02-13 18:48:00 [facility] Diastolic (mm Hg) 2018-02-13 18:48:00 [facility] [place] Procedures Procedure Date / Time Performed Performing Clinicia n Source Collection of venous blood by venipuncture 2018-02-13 18:56:00 [facility] Procedure on eye [facility]mann Procedure on wrist [facility] Sebaceous cyst removal<sup>1</sup> [facility] Encounters Start Date/Time End Date/Time Encounter Type Admission Type Attending Clinicians Care Facility Care Department Encounter ID Source 2023-08-27 13:02:00 2023-08-27 13:02:00 Outpatient AKBAR Eddy Rakesh [facility] [id number] [address] [facility] 2023-02-18 15:00:00 2023-02-18 15:00:00 Outpatient ANDRES [facility] [id number] [facility] 2018-03-31 15:30:00 2018-03-31 15:30:00 Ambulatory Pre-Reg nullFlavo r [id number] Geovany Garzon 2018-02-13 19:00:00 2018-02-14 04:59:59 Outpatient nullFlavo r [facility] Primary Care [facility] [id number] Geovany Garzon 2017-12-16 15:18:00 2017-12-18 05:59:59 Phone Message nullFlavo r [facility] [id number] Geovany Garzon Results Test Description Test Time Test Comments Results Result Co mments Source PTT [id number] 14:44:00* Test Item Value Reference Range Interpretation Comme nts PTT ACTIVATED (test code = APTT) 65.3 SECONDS 27.2-37.9 HH CALLED TO [facility] ON 08/27/23 AT 1444 BY Dejuan Snell BASIC METABOLIC [id number] 14:39:00* Test Item Value Reference Range Interpretation Comme nts SODIUM (test code = NA) 140 MMOL/L 137-145 N POTASSIUM (test code = K) 4.5 MMOL/L 3.5-5.1 N CHLORIDE (test code = CL) 103 MMOL/L 98-107 N CARBON DIOXIDE (test code = CO2) 27 MMOL/L 22-30 N GLUCOSE (test code = GLU) 94 MG/DL 74-106 N BLOOD UREA NITROGEN (test code = BUN) 18 MG/DL 9-20 N GLOMERULAR FILTRATION RATE (test code = GFR) > 60 The Glomerular Filtration Rate is a calculated parameterbased on serum Creatinine, patient age and sex. GFR valuesless than 60 mL/min/1.73 square meters are indicative ofChronic Kidney Disease. Values less than 15 mL/min/1.73square meters indicate Kidney failure. The calculation forGFR is based on the CKD-EPI (202) calculation. This formulais race indifferent and is the recommended formula for GFRby the National Kidney Foundation for Adults.The GFR will not calculate if the sex is unknown or if thepatient's age is <18 years. CREATININE (test code = CREAT) 1.00 MG/DL 0.66-1.25 N CALCIUM (test code = CA) 9.4 MG/DL 8.4-10.2 N [id number] 14:39:00* Test Item Value Reference Range Interpretation Comme nts MAGNESIUM (test code = MAG) 1.9 MG/DL 1.6-2.3 N CBC W/AUTO [id number] 14:19:00* Test Item Value Reference Range Interpretation Comme nts WHITE BLOOD CELL (test code = WBC) 7.7 K/MM3 3.8-9.8 N RED BLOOD CELL (test code = RBC) 5.17 M/MM3 3.95-5.67 N HEMOGLOBIN (test code = HGB) 17.1 G/DL 12.4-16.7 H HEMATOCRIT (test code = HCT) 50.4 % 35.9-49.5 H MEAN CELL VOLUME (test code = MCV) 98 fL 81.7-96.1 H MEAN CELL HGB (test code = MCH) 33.1 pg 27.6-33.2 N MEAN CELL HGB CONCETRATION (test code = MCHC) 33.9 % 32.9-35.5 N RED CELL DISTRIBUTION WIDTH (test code = RDW) 13.0 % 12.1-15.2 N PLATELET COUNT (test code = PLT) 152 K/MM3 129-368 N MEAN PLATELET VOLUME (test c ode = MPV) 11.1 fl 7.4-10.4 H NEUTROPHIL % (test code = NT%) 72.7 % 43-75 N IMMATURE GRANULOCYTE % (test code = IG%) 0.3 % 0.0-2.0 N LYMPHOCYTE % (test code = LY%) 19.2 % 14-44 N MONOCYTE % (test code = MO%) 6.3 % 4-13 N EOSINOPHIL % (test code = EO%) 1.0 % 0-6 N BASOPHIL % (test code = BA%) 0.5 % 0-2 N NUCLEATED RBC % (test code = NRBC%) 0.0 % 0-1.0 N NEUTROPHIL # (test code = NT#) 5.61 K/mm3 2.0-7.6 N IMMATURE GRANULOCYTE # (test code = IG#) 0.02 x10 3/uL 0-0.03 N LYMPHOCYTE # (test code = LY#) 1.48 K/mm3 1.0-3.8 N MONOCYTE # (test code = MO#) 0.49 K/mm3 0.1-0.8 N EOSINOPHIL # (test code = EO#) 0.08 K/mm3 0.0-0.2 N BASOPHIL # (test code = BA#) 0.04 K/mm3 0.0-0.2 N NUCLEATED RBC # (test code = NRBC#) 0.00 K/mm3 0.0-0.1 N [id number] 16:30:08910Rqtyhxbx [id number] 21:30:0080 [facility] [id number] 14:[facility] 14:20:473[facility] Notes Date/Time Note Provider Source 2023-08-27 16:36:00 [id number] [address] PATIENT NAME: NICO DEGROOT ADMIT DATE: 08/27/23 ACCOUNT NO: [id number] ROOM NO: AGE: 78 REPORT TYPE: CARDIAC CATHETERIZATION REPORT SEX: M ADMITTING PHYSICIAN: ATTENDING PHYSICIAN:Rakesh Eddy MD PROCEDURE DATE: 08/27/2023 PROCEDURE: Cardioversion. PREPROCEDURE DIAGNOSIS: Persistent atrial fibrillation. POSTPROCEDURE DIAGNOSIS: Persistent atrial fibrillation. MANAGER GENERATION: Rakesh Eddy MD SUPERVISOR ROVING: None. ANESTHESIA: Deep sedation with intravenous etomidate. DESCRIPTION OF PROCEDURE: After informed consent was obtained explaining to the patient risks and benefits, and following adequate deep sedation, a single 360 joule synchronized biphasic shock was applied via anterior and apical defibrillation pads. This resulted in sinus rhythm. The patient tolerated the procedure well with no complications. CONCLUSION: Successful cardioversion. COMPLICATIONS: No complications. Dictated By: Rakesh Eddy MD Date Dictated: 08/27/2023 16:36:44 Date Transcribed: 08/27/2023 16:47:50 [facility] Receipt ID: [id number] Authenticated by Rakesh Eddy MD On 08/30/2023 07:18:22 AM at 0718 PATIENT NAME: NICO DEGROOT [facility] 2023-08-27 16:30:00 [id number] [place] [address] PATIENT NAME: NICO DEGROOT ADMIT DATE: 08/27/23 ACCOUNT NO: [id number] ROOM NO: AGE: 78 REPORT TYPE: ELECTROCARDIOGRAM SEX: M ADMITTING PHYSICIAN: ATTENDING PHYSICIAN:Rakesh Eddy MD Order: [id number] Test Reason : S/P CARDIOVERSION Test Date/Time Stamp: SatAug 27 2023 16:30:28 Blood Pressure : / mmHG Vent. Rate : 052 BPM Atrial Rate : 052 BPM P-R Int : 300 ms QRS Dur : 098 ms QT Int : 470 ms P-R-T Axes : 087 -23 011 degrees QTc Int : 437 ms Sinus bradycardia with 1st degree AV block Nonspecific T wave abnormality Abnormal ECG When compared with ECG of 27-AUG-2023 13:40, (Unconfirmed) Sinus rhythm has replaced Atrial fibrillation Criteria for Anterior infarct are no longer present Confirmed by NISA MCCURDY MD ([id number]) on 08/28/2023 8:04:54 AM Referred By: Rakesh Eddy Confirmed by:NISA MCCURDY MD at 0804 PATIENT NAME: NICO DEGROOT [facility] 2023-08-27 13:40:00 [id number] [place] [address] PATIENT NAME: NICO DEGROOT ADMIT DATE: 08/27/23 ACCOUNT NO: [id number] ROOM NO: AGE: 78 REPORT TYPE: ELECTROCARDIOGRAM SEX: M ADMITTING PHYSICIAN: ATTENDING PHYSICIAN:Rakesh Eddy MD Order: [id number] Test Reason : ATRIAL FIBRILLATION Test Date/Time Stamp: SatAug 27 2023 13:40:23 Blood Pressure : / mmHG Vent. Rate : 067 BPM Atrial Rate : 054 BPM P-R Int : 000 ms QRS Dur : 090 ms QT Int : 436 ms P-R-T Axes : 000 -34 -30 degrees QTc Int : 460 ms Atrial fibrillation with premature ventricular or aberrantly conducted complexes Left axis deviation Anterior infarct , age undetermined Abnormal ECG No previous ECGs available Confirmed by NISA MCCURDY MD ([id number]) on 08/28/2023 8:04:59 AM Referred By: Rakesh Eddy Confirmed by:NISA MCCURDY MD at 0804 PATIENT NAME: NICO DEGROOT [facility]
--- NOTE | 2025-03-23 12:36 | RAD REPORT ---
EXAMINATION: CT Abdomen Pelvis Wo Contrast CLINICAL INDICATION: Male, 79 years old. Right flank pain TECHNIQUE: CT abdomen and pelvis was performed, without IV contrast, as per department protocol. Axia l, sagittal and coronal reconstructions were obtained. One or more of the following dose reduction techniques were used: Automated exposure control, adjustment of the mA and kV according to the patien t size, and iterative reconstruction. Unless otherwise specified, incidental findings do not require dedicated imaging follow-up. COMPARISON: 08/11/2021. FINDINGS: The lack of intravenous contrast limits the sensitivity of this exam for evaluation of solid visceral organs, vascular structures, and retroperitoneum. LOWER CHEST: The visualized lung bases are clear. LIVER: Normal in size and contour. No focal lesion. BILIARY SYSTEM: Cholelithiasis. No pericholecystic fluid SPLEEN: Normal size. No focal lesion. PANCREAS: No mass, ductal dilation, or catracho-pancreatic fluid. ADRENALS: Normal; no mass. KIDNEYS AND URETERS: 1-2 mm nonobstructing calculus near the lower pole. Normal size and contour. No hydronephrosis. URINARY BLADDER: Normal contour. GASTROINTESTINAL TRACT: No evidence of bowel obstruction, significant free fluid, free air or abscess . Distal colonic diverticulosis without evidence of acute diverticulitis. APPENDIX: Normal appendix. LYMPH NODES: No lymphadenopathy. MUSCULOSKELETAL: No acute or suspicious osseous abnormality. ADDITIONAL FINDINGS: Small right inguinal hernia containing trace fluid and fat. Prostatomegaly. IMPRESSION: Cholelithiasis and tiny nonobstructing right renal calculus. Distal colonic diverticulosis without evidence of acute diverticulitis. Stable sized small right inguinal hernia containing trace fluid and fat.
[2025-03-23 12:43] LABS: Absolute Eosinophils 0.1 K/uL (0-0.5); Absolute Lymphocytes (CBC) 1.2 K/uL (0.7-4.9); Absolute Monocytes 0.5 K/uL (0.1-1.3); Absolute Neutrophil 5.6 K/uL (1.8-8.0); Basophils % 0.7 % (0-1.3); Eosinophils % 0.8 % (0-4.4); Hematocrit 46.5 % (39.6-49.0); Hemoglobin 16.3 g/dL (13.6-17.9); Lymphocytes % 15.7 % (15.3-44.8); MCH 34.5 pg (27.0-35.0); MCHC 35.1 g/dL (32.0-36.0); MCV 98.4 fL (80-100); MPV 8.9 fL (7.6-11.3); Monocytes % 6.5 % (3.3-12.3); Neutrophils % 76.3 % (41.7-73.7); Nucleated Red Blood Cells % 0.1 % (0-0); Platelets 175 thou/uL (152-406); RBC Red Blood Cell Count 4.73 M/uL (4.33-5.43); Red Cell Distribution Width 13.5 % (12.1-15.2)
[2025-03-23 13:07] LABS: Sqamous Epithelial <5 /HPF (None Seen); Urine Bacteria None Seen /HPF (<20); Urine Bilirubin NEGATIVE (Negative); Urine Blood Negative (Negative); Urine Clarity Clear (Clear); Urine Color Yellow (Yellow); Urine Culture Reflex Order NOT NEEDED; Urine Glucose NEGATIVE (Negative); Urine Ketones NEGATIVE (Negative); Urine Microscopic Reflex YN ORDER UMIC; Urine Mucus Slight /HPF (None Seen); Urine Nitrite NEGATIVE (Negative); Urine Protein TRACE (Negative); Urine RBC <5 /HPF (None Seen); Urine Urobilinogen 1+ (Normal); Urine WBC <5 /HPF (<5)
[2025-03-23 13:16] LABS: Albumin 3.9 g/dL (3.4-5.0); Anion Gap 7.2 mEq/L (5.0-15.0); Bilirubin Total 1.1 mg/dL (0.2-1.0); Globulin 3.8 g/dL (2.3-3.5); Potassium 4.2 mEq/L (3.5-5.1); Protein, Total 7.7 g/dL (6.4-8.2)
--- NOTE | 2025-03-23 14:29 | RAD REPORT ---
EXAM: Right upper quadrant ultrasound. CLINICAL HISTORY: ABD PAIN COMPARISON: None. FINDINGS: Gallbladder: Small shadowing gallstones. Bile ducts: No intrahepatic or extrahepatic biliary dilatation. Common bile duct measures 3 mm. Limited imaging of the liver shows no concerning finding. IMPRESSION: Cholelithiasis.
--- NOTE | 2025-03-23 14:47 | ER ---
Nurse's Notes [facility] Name: Casey Keen Age: 79 yrs Sex: Male : 1945 Arrival Date: 03/23/2025 Time: 10:50 Bed 8 Private MD: Diagnosis: Other cholelithiasis without obstruction;Flank pain Presentation: 03/23 11:13 Chief complaint: Patient states: has a right inguinal hernia that has been hurting iw since Saturday , also having pain around to his right low back . Coronavirus screen: At this time, the client does not indicate any symptoms associated with coronavirus-19. Ebola Screen: No symptoms or risks identified at this time. Initial Sepsis Screen: Does the patient meet any 2 criteria? No. Patient's initial sepsis screen is negative. Does the patient have a suspected source of infection? No. Patient's initial sepsis screen is negative. Risk Assessment: Do you want to hurt yourself or someone else? Patient reports no desire to harm self or others. 11:13 Method Of Arrival: Wheelchair iw 11:13 Acuity: MALU 3 iw 12:40 Onset of symptoms was March 23, 2025. ph Triage Assessment: 11:15 General: Appears in no apparent distress. uncomfortable, Behavior is calm, cooperative, bp appropriate for age. Pain: Complains of pain in right lower quadrant. EENT: No deficits noted. Neuro: No deficits noted. Cardiovascular: No deficits noted. Respiratory: No deficits noted. GI: No signs and/or symptoms were reported involving the gastrointestinal system. : No signs and/or symptoms were reported regarding the genitourinary system. Derm: No deficits noted. Musculoskeletal: Reports pain in right mid back. Historical: - Allergies: 11:14 No Known Allergies; iw - PMHx: 11:14 Atrial fibrillation; Hypertension; iw - Immunization history:: Adult Immunizations. - Infectious Disease History:: Denies. - Social history:: Smoking status: Patient/guardian denies using tobacco. Screenin:29 Abuse screen: Denies threats or abuse. Denies injuries from another. Nutritional ph screening: No deficits noted. Tuberculosis screening: No symptoms or risk factors identified. 12:40 [facility] ED Fall Risk Assessment (Adult) History of falling in the last 3 months, ph including since admission No falls in past 3 months (0 pts) Confusion or Disorientation No (0 pts) Intoxicated or Sedated No (0 pts) Impaired Gait No (0 pts) Mobility Assist Device Used Yes (1 pt) Altered Elimination No (0 pt) Score/Fall Risk Level 0 - 2 = Low Risk Oriented to surroundings, Maintained a safe environment, Hourly rounding (assess needs \T\ fall precautionary measures) done. Assessment: 12:40 General: Appears in no apparent distress. comfortable, well groomed, Behavior is calm, ph cooperative, appropriate for age. Pain: Complains of pain in right mid back Pain radiates to right lower quadrant. Neuro: Level of Consciousness is awake, alert, obeys commands, Oriented to person, place, time, situation. Cardiovascular: Capillary refill < 3 seconds in bilateral fingers Patient's skin is warm and dry. Respiratory: Airway is patent Respiratory effort is even, unlabored. GI: Reports lower abdominal pain. : Reports pain in right lower quadrant(s) in lower back. Derm: Skin is pink, warm \T\ dry. Musculoskeletal: Circulation, motion, and sensation intact. Range of motion: intact in all extremities. Vital Signs: 11:13 BP 129 / 72; Pulse 60; Resp 18; Temp 98.7; Pulse Ox 97% on R/A; Weight 89.36 kg; Height iw 6 ft. 3 in. ; Pain 10/10; 15:32 BP 131 / 69; Pulse 67; Resp 16; Pulse Ox 97% ; bp 11:13 Body Mass Index 24.62 (89.36 kg, 190.5 cm) iw 11:13 Pain Scale: Adult iw ED Course: 10:56 Patient arrived in ED. al6 11:09 Chase Gallardo DO is Attending Physician. ms3 11:14 Triage completed. iw 11:14 Arm band placed on. iw 11:54 CT Abd/Pelvis - Without Contrast In Process Unspecified. EDMS 12:23 Michael Albert, RN is Primary Nurse. bp 12:24 Initial lab(s) drawn, by me, sent to lab. Inserted saline lock: 20 gauge in left ph forearm, using aseptic technique. Blood collected. Flushed with 10 mL NS. 12:29 Patient has correct armband on for positive identification. Bed in low position. Call ph light in reach. Side rails up X 1. Pulse ox on. NIBP on. Door closed. Noise minimized. Warm blanket given. Pillow given. 12:41 Urine collected: clean catch specimen. ph 14:21 US Abdomen Limited In Process Unspecified. EDMS 15:32 No provider procedures requiring assistance completed. IV discontinued, intact, bp bleeding controlled, No redness/swelling at site. Pressure dressing applied. Administered Medications: No medications were administered Medication: 12:40 VIS not applicable for this client. ph Outcome: 14:46 Discharge ordered by . ms3 15:32 Discharged to home ambulatory, bp 15:32 Condition: stable 15:32 Discharge instructions given to patient, Instructed on discharge instructions, follow up and referral plans. Demonstrated understanding of instructions, follow-up care, 15:33 Patient left the ED. bp Signatures: Dispatcher [employer] Cari Vides, RN RN Jackie Talavera RN RN Michael Garcia RN RN bp Chase Gallardo DO DO ms3 StanleyJosselyn al6
--- NOTE | 2025-03-23 14:47 | EDPHYS ---
Physician Documentation [facility] Name: Casey Keen Age: 79 yrs Sex: Male : 1945 Arrival Date: 03/23/2025 Time: 10:50 Bed 8 Private MD: ED Physician Chase Gallardo HPI: 03/23 11:54 This 79 yrs old Male presents to ER via Wheelchair with complaints of Back Pain. ms3 11:54 79-year-old male with past medical history of atrial fibrillation, hypertension ms3 presents to the emergency department for right flank pain that radiates to the right lower abdomen. Patient states he was referred to the emergency department by his primary care physician, Dr. Vora. Patient states the pain is currently 10/10. Patient denies nausea, vomiting, fevers, chills. Patient endorses constipation.. Historical: - Allergies: 11:14 No Known Allergies; iw - PMHx: 11:14 Atrial fibrillation; Hypertension; iw - Immunization history:: Adult Immunizations. - Infectious Disease History:: Denies. - Social history:: Smoking status: Patient/guardian denies using tobacco. ROS: 11:54 Constitutional: Negative for fever, and chills. Cardiovascular: Negative for chest ms3 pain, and palpitations. Respiratory: Negative for shortness of breath, cough, wheezing, and pleuritic chest pain, 11:54 MS/Extremity: Negative for injury and deformity, Skin: Negative for injury, rash, and discoloration, 11:54 Abdomen/GI: Positive for constipation, Negative for nausea, vomiting, and diarrhea, 11:54 Back: Positive for flank pain, on the right, Exam: 11:54 Constitutional: This is a well developed, well nourished patient who is awake, alert, ms3 and in no acute distress. Cardiovascular: Regular rate and rhythm with a normal S1 and S2. No gallops, murmurs, or rubs. Normal PMI, no JVD. No pulse deficits. Respiratory: Lungs have equal breath sounds bilaterally, clear to auscultation and percussion. No rales, rhonchi or wheezes noted. No increased work of breathing, no retractions or nasal flaring. Abdomen/GI: Soft, non-tender, with normal bowel sounds. No distension or tympany. No guarding or rebound. No evidence of tenderness throughout. 11:54 Back: pain, that is severe, of the right mid back, CVA tenderness, that is severe, is noted on the right, Vital Signs: 11:13 BP 129 / 72; Pulse 60; Resp 18; Temp 98.7; Pulse Ox 97% on R/A; Weight 89.36 kg; Height iw 6 ft. 3 in. ; Pain 10/10; 15:32 BP 131 / 69; Pulse 67; Resp 16; Pulse Ox 97% ; bp 11:13 Body Mass Index 24.62 (89.36 kg, 190.5 cm) iw 11:13 Pain Scale: Adult iw MDM: 11:32 Medical Screening Exam initiated ms3 11:54 Differential diagnosis: Pyelonephritis Ureterolithiasis. ms3 14:47 Data reviewed: vital signs, nurses notes, lab test result(s), radiologic studies, and ms3 as a result, I will discharge patient. Counseling: I had a detailed discussion with the patient and/or guardian regarding the historical points, exam findings, and any diagnostic results supporting the discharge/admit diagnosis, lab results, radiology results, the need for outpatient follow up, to return to the emergency department if symptoms worsen or persist or if there are any questions or concerns that arise at home. Special discussion: Based on the patient's Hx, exam, and Dx evaluation, there is no indication for emergent surgery or inpatient Tx. It is understood by the patient/guardian that if the Sx's persist or worsen they need to return immediately for re-evaluation. ED course: Discussed ultrasound showing cholelithiasis without obstruction, discussed CT results with patient. White blood count normal. No signs of infection present at this time. Patient to follow-up with primary care physician 2 to 3 days. Patient understands agrees with plan. All questions were answered. Return precautions discussed include worsening symptoms, or any other concerns.. 03/23 11:37 Order name: CBC with Diff; Complete Time: 13: ms3 03/23 11:37 Order name: CMP; Complete Time: 13: ms3 03/23 11:37 Order name: Lipase; Complete Time: 13: ms3 03/23 11:37 Order name: Urinalysis w/ reflexes; Complete Time: 13: ms3 03/23 11:37 Order name: CT Abd/Pelvis - Without Contrast; Complete Time: 13:27 ms3 03/23 13:55 Order name: US Abdomen Limited; Complete Time: 14:45 ms3 03/23 11:37 Order name: IV Saline Lock; Complete Time: 12:30 ms3 03/23 11:37 Order name: Labs collected and sent; Complete Time: 12:30 ms3 Administered Medications: No medications were administered Disposition Summary: 03/23/25 14:46 Discharge Ordered Notes: Location: Home ms3 Condition: Stable ms3 Diagnosis - Other cholelithiasis without obstruction ms3 - Flank pain ms3 Followup: ms3 - With: Private Physician - When: 2 - 3 days - Reason: Recheck today's complaints Discharge Instructions: - Discharge Summary Sheet ms3 - Cholelithiasis ms3 Forms: - Medication Reconciliation Form ms3 - Antibiotic Education ms3 - Prescription Opioid Use ms3 - Patient Portal Instructions ms3 - Leadership Thank You Letter ms3 Signatures: Dispatcher [employer] Cari Vides RN RN iw Chase Gallardo DO DO ms3 Corrections: (The following items were deleted from the chart) 11:37 11:37 CBC+H.LAB.BRZ ordered. EDMS EDMS 11:37 11:37 COMPREHENSIVE METABOLIC PANEL+C.LAB.BRZ ordered. EDMS EDMS 11:37 11:37 LIPASE+C.LAB.BRZ ordered. EDMS EDMS 11:37 11:37 Urinalysis+U.LAB.BRZ ordered. EDMS EDMS 11:37 11:37 Abdomen Pelvis Wo Con+CT.RAD.BRZ ordered. EDMS EDMS
[2025-03-23 16:12] VITALS: TEMP 98.7; O2SAT 97
[2025-03-23 16:22] VITALS: BP 131/69
== END 2025-03-23 15:33 | disposition home or self-care (01) ==
LOC: ER 10:50
DX: K80.80 Other cholelithiasis without obstruction (principal); K59.00 Constipation, unspecified
CPT/HCPCS: 36415; 74176; 76705; 80053; 81001; 83690; 85025; 99284